=== PATIENT | female | born 1950 | race Caucasian/White ===

== ENCOUNTER → 2017-10-10 | Outpatient (CLI) | payer MEDICARE ==
[2017-03-07 12:36] VITALS: BMI 29.6
[~2017-10-10] MED LIST: APRE30TA2 PO; ASCO-183 PO; ASCO-191 PO; ASCO-599 PO; ASPI-757 PO; BIOT10006 PO; BIOT1TAB12 PO; BIS10S PR; BUP75 PO; CALC600T72 PO; CEPH-13 PO; CHOL100059 PO; CHOL100094 PO; CHOL500025 PO; CITA-139 PO; CLI150 PO; CYA1000 PO; DAP500I IV; DIAZ-308 PO; DOC100 PO; DULO60CA56 PO; ESTR0.4513 PO; FER325 PO; FLU20 PO; FOLI-68 PO; HYD200 PO; HYDR200T38 PO; KRIL500C2 PO; LEVO50TA80 PO; LOR10/325 PO; LOR5/325 PO; LOR7.5/325 PO; MAGN250T25 PO; MAGN250T34 PO; MOM PO; MULT1CAP59 PO; MYLL PO; OMEP-125 PO; OMEP-218 PO; TRAM-420 PO; WAR2 PO; WAR5 PO; ZINC50TA58 PO; [UNRECOGNIZED DRUG - CODE] PO; anti-depressant PO
== END ==
LOC: LAB 09:22
PROVIDERS: ATTEND Emergency Medicine
DX: E78.5 Hyperlipidemia, unspecified (principal)
CPT/HCPCS: 36415; 82465; 83718; 84478

== ENCOUNTER → 2017-10-17 | Outpatient (CLI) | payer MEDICARE ==
[2017-03-07 12:36] VITALS: BMI 29.6
--- NOTE | 2017-10-17 10:35 | RADIOLOGY IMAGING REPORT ---
FACILITY: [facility] PATIENT NAME: Zaynab Harper : 1950 MR: [id number] V: [id number] EXAM DATE: ORDERING PHYSICIAN: MARLENE LUNA TECHNOLOGIST: [place] [facility] [place] Zaynab Harper : 1950 Visit/Account:[id number] Date of Sevice: 10/17/2017 DEXA Scan Clinical history: Asymptomatic postmenopausal estrogen deficiency. Comparison: DEXA scan from 02/07/2000. LUMBAR SPINE: The bone mineral density (BMD) measured from L1-L4 correlates with a Z-score of -0.1 and a T-score of -1.8 which is osteopenia as defined by the World Health Organization. The corresponding risk of fra cture in the lumbar spine is 3-4 times increased compared with a young adult reference population. T his value has decreased by 13.1 % since the prior study. More than 5% change is considered significa nt. HIP: Bone mineral density (BMD) measured in the LEFT total hip region correlates with a Z-score -0.2 and a T-score of -1.7 which is osteopenia as defined by the World Health Organization. The corresponding risk of fracture in the hip is 3-4 times increased compared to a young adult reference population. Th is value has decrease by 25.6 % since the prior study. More than 5% change is considered significant . T score left femoral neck -1.8 Bone mineral density (BMD) measured in the Femoral Neck region measures 0.793 g/cm?. IMPRESSION: 1. Lumbar spine: Osteopenia. There has been 13.1% decrease in the bone mineral density since the pr evious exam. 2. Left Total Hip: Osteopenia. There has been 25.6% decrease in the bone mineral density since the previous exam. 3. Femoral Neck: Bone Mineral Density is 0.793 g/cm? The next DEXA scan of this patient should include the following sites: L1-L4 and the left hip. FRAX? WHO Fracture Risk Assessment Tool link: <http://www.shef.ac.uk/FRAX/tool.jsp?locationValue=9> PLEASE NOTE: 1) The World Health Organization defines low BMD as follows: T-score Normal > -1 Osteopenia < -1 and > -2.5 Osteoporosis < -2.5 without fractures Established osteoporosis < -2.5 with fractures 2) In general, you may wish to consider: Diagnosis Treatment Follow-up DEXA Normal BMD Prevention 2-3 years Osteopenia Prevention/therapy 1-2 years Osteoporosis Therapy Yearly 3) Fracture risk estimated from the T-score is more accurate for vertebral fractures (often spontane ous) than for hip fractures. Report Dictated By: Eden Hernandez MD at 10/17/2017 10:28 AM Report E-Signed By: Eden Hernandez MD at 10/17/2017 10:31 AM WSN:[email or web address]
--- NOTE | 2017-10-17 10:49 | RADIOLOGY IMAGING REPORT ---
FACILITY: [facility] - [place] PATIENT NAME: Zaynab Harper : 1950 MR: [id number] V: [id number] EXAM DATE: ORDERING PHYSICIAN: MARLENE LUNA TECHNOLOGIST: Location: [facility] - [place] Patient: Zaynab Harper : 1950 Visit/Account:[id number] Date of Sevice: 10/17/2017 CHEST W/O CONTRAST History: Lung nodule follow up. TECHNIQUE: Contiguous axial images were performed through the chest to the level of the adrenal gla nds. No IV contrast was administered. Coronal and sagittal reformatting was also performed. Dose Lowe ring Technique One of the following dose optimization techniques was utilized in the performance of this exam: Autom ated exposure control; adjustment of the mA and/or kV according to the patient's size; or use of an i terative reconstruction technique. Specific details can be referenced in the facility's radiology C T exam operational policy. COMPARISON STUDIES: CTA chest March 06, 2017. Lungs / Pleura: The previously noted 10 mm area of nodular consolidation the right lung base is no longer seen. There is no evidence of pulmonary nodules pulmonary infiltrates or pleural effusions. Mediastinum/nodes: There are several calcified pretracheal subcarinal and left hilar lymph nodes Heart and vessels: negative. Musculoskeletal / Body wall: There Is a gentle S-shaped scoliosis of the thoracic spine and mild to moderate degenerative changes of the shoulder joints Upper abdomen: Calcified granulomas in the liver and spleen IMPRESSION: Previously noted 10 mm area of nodular consolidation right lower lobe is no longer seen. There is no evidence of pulmonary nodules, infiltrates or pleural effusions at this time Evidence of a prior granulomatous process Report Dictated By: Eden Hernandez MD at 10/17/2017 10:37 AM Report E-Signed By: Eden Hernandez MD at 10/17/2017 10:45 AM WSN:[email or web address]
== END ==
LOC: CT 10-13 04:26
PROVIDERS: ATTEND Emergency Medicine
DX: R91.1 Solitary pulmonary nodule (principal); M85.89 Other specified disorders of bone density and structure, multiple sites; Z78.0 Asymptomatic menopausal state
CPT/HCPCS: 71250; 77080

== ENCOUNTER → 2017-11-16 | Outpatient (CLI) | payer MEDICARE ==
[2017-03-07 12:36] VITALS: BMI 29.6
[~2017-11-16] MED LIST changes: +ASPI-1471 PO; +ATOR40TA24 PO; -HYDR200T38 PO; +HYDR200T77 PO
== END ==
LOC: LAB 08:40
PROVIDERS: ATTEND Emergency Medicine
DX: E78.5 Hyperlipidemia, unspecified (principal)
CPT/HCPCS: 36415; 82465; 83718; 84478

== ENCOUNTER 2017-11-29 10:30 | Outpatient (RCR) | payer MEDICARE ==
[2017-03-07 12:36] VITALS: BMI 29.6
--- NOTE | 2017-10-11 17:16 | PT INITIAL EVALUATION ---
MEDICAL DIAGNOSIS: neck pain TREATMENT DIAGNOSIS: same and headaches DATE OF ONSET: 10/11/15 SUBJECTIVE: Lee Ann Sofia presents to physical therapy with complaints of neck pain associated with headaches approximately 2 years ago from no apparent reason. 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 She rates her constant neck pain to be 3/10. She reports that he has intermittent pain that goes from her neck to her B shoulders and also states that she has headaches that stay near the base of her skull. She reports that she is having difficulty driving and reading due to the neck pain. She reports that she feels like the neck pain is worsening. She reports that the pain is worse with bending, turning, staying still, in the am, and lying. She reports that the pain is better with sitting and on the move. She reports that she continues to has laser treatment and massage X 1 month with minimal results. She reports that she is going to try acupuncture her in the little while. She denies the following symptoms: dizziness, nausea, unexplained weight loss, no recent accidents or surgeries. She does report that she has tinnitus, difficulty swallowing, and night pain. Pain location is C2-C7 spinous and facets. REHAB PROBLEM LIST: Increased Pain Decreased ROM Decreased Strength Decreased Endurance Decreased Function Decreased ADL's Decreased Mobility PREVIOUS MEDICAL HISTORY: See EMR OCCUPATION: Retired OBJECTIVE: Posture: She demonstrated minimal forward head, B rounded shoulder, increased thoracic kyphosis, and decreased lumbar lordosis ROM: Cervical AROM: extension: major restriction end range pain, flexion full with painful end feel, R and L sidebending: moderate restriction with empty end feel, R rotation:moderate restriction with empty end feel. L rotation: minimal restriction with painful end feel. Palpation: TTP: C2-C7 spinous process and facet joints, which radiated to upper trap Special Tests: Repeated cervical retraction: pain during the motion and better following the test with cervical AROM. Mobility: Independent Gait: Normal gait mechanics ASSESSMENT: Pat will benefit from skilled physical therapy to address the listed impairments to improve function and QOL. Based on the examination, she demonstrated directional preference with cervical pain along with centralized pain. Based on the directional preference and centralized pain, her prognosis is excellent. Short Term Goals 2 weeks: Pt will demonstrate centralized cervical pain to improve function and QOL. 4 weeks: Pt will demonstrate abolished cervical pain and return to prior level of function. 6 weeks: Pt will demonstrate full cervical AROM along with improved work conditioning and improved body mechanics to reduce possibility of reoccurrences. Patient's Goals reduce pain, improve function, and learn better body mechanics PLAN: Patient to be seen for Manual Therapy/STM/MET Strengthening/condition Range of Motion Spinal Stabilization Work Hardening/Cond Stretching Neuromuscular Re-ed Closed Chain Program Posture/Body mechanics Home Exercise Program Therapeutic Activities 2x/week for 6 Weeks If you have any questions, comments, or concerns about this report or plan, please contact me at . Thank you, Cortez Arzola, PT, DPT MTDD
--- NOTE | 2017-11-10 14:18 | PT PLAN OF CARE ---
Physician: Lizabeth Buckley MD Patient is being seen: 2x/week Therapist: Cortez Arzola, PT, DPT Medical Diagnosis: neck pain Treatment Diagnosis: same and headaches Date of Onset: 10/11/15 Date of Initial Evaluation: 10/11/17 Date patient was last seen: 11/10/17 Number of treatments: 10 Number of cancellations/No shows: 0 INTERVENTIONS: PLAN: Patient to be seen for Manual Therapy/STM/MET Strengthening/condition Range of Motion Spinal Stabilization Work Hardening/Cond Stretching Neuromuscular Re-ed Closed Chain Program Posture/Body mechanics Home Exercise Program Therapeutic Activities Short Term Goals 2 weeks: Pt will demonstrate centralized cervical pain to improve function and QOL. MET 4 weeks: Pt will demonstrate abolished cervical pain and return to prior level of function. Progressing 6 weeks: Pt will demonstrate full cervical AROM along with improved work conditioning and improved body mechanics to reduce possibility of reoccurrences. Progressing Patient's Goals reduce pain, improve function, and learn better body mechanics: progressing Status of Patient's Goals: Progressing Patient Compliance: Good Prognosis: Good Reasons for continuing therapy: This is a progress note for Lee Ann Sofia. She reports that she is doing well. She reports that she feels like her motion has significantly improved along with her neck pain. She rates her current neck pain to be 2/10. Furthermore, she reports that her neck pain is more centralized near the occiput.She continues to demonstrated centralized neck pain , a directional preference in flexion, and a reduction of intensity. Furthermore , she demonstrates significant improvements in cervical AROM in all directions and all movements appear equal from side to side. We will continue to improve until goals have been met and has returned to prior level of function. OBJECTIVE: Posture: She demonstrated minimal forward head, B rounded shoulder, increased thoracic kyphosis, and decreased lumbar lordosis ROM: Cervical AROM: extension: minimal restriction end range pain, flexion full with painful end feel, R and L sidebending: minimal restriction with empty end feel, R rotation: minimal restriction with empty end feel. L rotation: minimal restriction with painful end feel. Palpation: TTP: C0 Mobility: Independent Gait: Normal gait mechanics If you have any questions, comments, or concerns about this report or plan, please contact me at . Thank you, Cortez Arzola, PT, DPT [facility]
--- NOTE | 2017-11-29 11:11 | PT PLAN OF CARE ---
Physician: Lizabeth Buckley MD Patient is being seen: 2x/week Therapist: Cortez Arzola, PT, DPT Medical Diagnosis: neck pain Treatment Diagnosis: same and headaches Date of Onset: 10/11/15 Date of Initial Evaluation: 10/11/17 Date patient was last seen: 11/29/17 Number of treatments: 14 Number of cancellations/No shows: 0 INTERVENTIONS: PLAN: Patient to be seen for Manual Therapy/STM/MET Strengthening/condition Range of Motion Spinal Stabilization Work Hardening/Cond Stretching Neuromuscular Re-ed Closed Chain Program Posture/Body mechanics Home Exercise Program Therapeutic Activities Short Term Goals 2 weeks: Pt will demonstrate centralized cervical pain to improve function and QOL. MET 4 weeks: Pt will demonstrate abolished cervical pain and return to prior level of function. Progressing will meet in the future 6 weeks: Pt will demonstrate full cervical AROM along with improved work conditioning and improved body mechanics to reduce possibility of reoccurrences. MET Patient's Goals reduce pain, improve function, and learn better body mechanics: MET Status of Patient's Goals: Progressing Patient Compliance: Good Prognosis: Good Reasons for continuing therapy: This is a discharge note for Lee Ann Sofia. She reports that she is doing well. She reports that she can move her neck better with no pain. She states that some motions feel like a muscle stretch but no pain. She reports her neck pain to be 1/10. She reports that she feels like it is slowly improving. She has progressed well within PT with the following improvements: increased cervical AROM in all directions with normalized end feels and independent on specific exercise that will assist her to continue to improve and eventually her neck pain with be abolished. She received education on how to progress and how to prevent further occurrences once it has completely abolished. As a result, she will be discharged from PT. OBJECTIVE: Posture: She demonstrated minimal forward head, B rounded shoulder, increased thoracic kyphosis, and decreased lumbar lordosis ROM: Cervical AROM: extension: NIL empty range pain, flexion full with normal end feel, R and L sidebending: NIL with muscular end feel, R rotation: NIL with muscular end feel. L rotation: NIL with muscular end feel. Palpation: TTP: C0 Mobility: Independent Gait: Normal gait mechanics If you have any questions, comments, or concerns about this report or plan, please contact me at . Thank you, Cortez Arzola, PT, DPT MTDD
== END 2017-11-29 18:00 | disposition home or self-care (01) ==
LOC: PT 10:30
PROVIDERS: ATTEND Emergency Medicine
DX: M54.2 Cervicalgia (principal); R51 Headache; H93.19 Tinnitus, unspecified ear; R13.10 Dysphagia, unspecified
CPT/HCPCS: 97162

== ENCOUNTER 2018-01-12 03:56 | Day surgery (SDC) | payer MEDICARE ==
[2017-03-07 12:36] VITALS: Ht 165.1 cm; Wt 58.1 kg
[~2018-01-12] VITALS: Ht 165.1 cm; Wt 58.1 kg
[2018-01-12] VITALS (8 sets, daily range): BP systolic 81–128; BP diastolic 51–84
[2018-01-12] MEDS ORDERED: PROPOFOL EMUL(*) 10MG/ML 20 ML 40 ML ONE (07:00)
[2018-01-12] MEDS ORDERED: NORMOSOL R SOLN(*) 1000 ML BAG 1,000 ML IV PRN (07:15)
[2018-01-12] MEDS ORDERED: LIDOCAINE/SOD BICARB 8.4% SYR ID ONE (07:15)
== END 2018-01-12 09:35 | disposition home or self-care (01) ==
LOC: OR 03:56
PROVIDERS: ATTEND Internal Medicine
DX: Z12.11 Encounter for screening for malignant neoplasm of colon (principal); K57.30 Diverticulosis of large intestine without perforation or abscess without bleeding
CPT/HCPCS: 00812; 45378; J2704

== ENCOUNTER → 2018-05-22 | Outpatient (CLI) | payer MEDICARE ==
[2017-03-07 12:36] VITALS: BMI 29.6
[~2018-05-22] MED LIST changes: -CITA-139 PO; +CITA-145 PO
== END ==
LOC: LAB 11:26
PROVIDERS: ATTEND Emergency Medicine
DX: R10.13 Epigastric pain (principal)
CPT/HCPCS: 87338

== ENCOUNTER → 2018-06-15 | Outpatient (CLI) | payer MEDICARE ==
[2017-03-07 12:36] VITALS: BMI 29.6
[~2018-06-15] MED LIST changes: +BARIUM SULFATE 176 GM BTL PO ONE; +BARIUM SULFATE 340 GM POWD ONE; +RANI-318 PO
--- NOTE | 2018-06-15 13:40 | RADIOLOGY IMAGING REPORT ---
FACILITY: [facility] PATIENT NAME: Zaynab Harper : 1950 MR: [id number] V: [id number] EXAM DATE: ORDERING PHYSICIAN: MARLENE LUNA TECHNOLOGIST: Location: [facility] - [place] Patient: Zaynab Harper : 1950 Visit/Account:[id number] Date of Sevice: 06/15/2018 Exam type: ESOPHAGRAM History: Dysphagia. The patient also gives a history of previous esophageal dilatation Comparison: None. Findings: Double contrast esophagram was performed with thick and thin barium and air contrast.. There is a sm all hiatal hernia with a large amount of gastroesophageal reflux observed. No significant narrowing identified within the esophagus. No mucosal erosion identified. The fluoroscopy dose area product w as 94.67 micro-Fontenot per meter squared IMPRESSION: 1. Small hiatal hernia with a large amount of gastroesophageal reflux although no significant esopha geal narrowing or mucosal erosion identified Report Dictated By: Eden Hernandez MD at 06/15/2018 1:25 PM Report E-Signed By: Eden Hernandez MD at 06/15/2018 1:36 PM WSN:[email or web address]
== END ==
LOC: RAD 04:28
PROVIDERS: ATTEND Emergency Medicine
DX: K44.9 Diaphragmatic hernia without obstruction or gangrene (principal); K21.9 Gastro-esophageal reflux disease without esophagitis; R13.10 Dysphagia, unspecified
CPT/HCPCS: 74220

== ENCOUNTER → 2018-06-18 | Outpatient (CLI) | payer MEDICARE ==
[2017-03-07 12:36] VITALS: BMI 29.6
[~2018-06-18] MED LIST changes: -BARIUM SULFATE 176 GM BTL PO ONE; -BARIUM SULFATE 340 GM POWD ONE
[2018-06-18 16:23] LABS: PLATELET COUNT, AUTOMATED 235 K/uL (150-450)
== END ==
LOC: LAB 15:52
PROVIDERS: ATTEND Emergency Medicine
DX: D75.89 Other specified diseases of blood and blood-forming organs (principal); Z90.5 Acquired absence of kidney
CPT/HCPCS: 36415; 82040; 82247; 82310; 82374; 82435; 82565; 82607; 82947; 84075; 84132; 84155; 84295; 84450; 84460; 84520; 85025

== ENCOUNTER → 2018-09-26 | Outpatient (CLI) | payer MEDICARE ==
[2017-03-07 12:36] VITALS: BMI 29.6
[~2018-09-26] MED LIST changes: +BUPR-126 PO; +CITA-141 PO
--- NOTE | 2018-09-26 16:27 | RADIOLOGY IMAGING REPORT ---
FACILITY: [facility] - [place] PATIENT NAME: PHILLIP WARREN : [id number] MR: [id number] V: [id number] EXAM DATE: [id number] ORDERING PHYSICIAN: MARLENE LUNA TECHNOLOGIST: Twan Dill RDMS, JUAN JOSE PROCEDURE:US LEFT BREAST COMPLETE COMPARISON:None. INDICATIONS:BREAST LUMP 12 O'CLOCK POSITION OF THE LEFT BREAST AND ABNORMAL MAMMOGRAM. FINDINGS: There is a solid hypoechoic irregular micro lobulated mass with acoustic enhancement in the upper portion of the Left breast that extends from 11 o'clock to 2 o'clock measuring 4.5 x 3.7 x 2cm and is indenting the anterior border of the patients breast implant. The mass is extremely concerning for malignancy an Ultrasound guided core biopsy is recommended. This corresponds to the mammographic abnormality seen today. DIAGNOSTIC CATEGORY 5--HIGHLY SUGGESTIVE OF MALIGNANCY. RECOMMENDATIONS: ULTRASOUND-GUIDED CORE BIOPSY: LEFT BREAST. IMPRESSION: BIRADS 5: Highly suggestive of malignancy. Ultrasound guided core biopsy of the solid heterogeneous shadowing mass in the upper portion of the Left breast extending from the 11-2 o'clock position as detailed above. These findings were discussed with the patient at the time of the examination. Dictated by: Eden Hernandez M.D. on 09/26/2018 at 14:48 Transcribed by: MELISSA on 09/26/2018 at 15:04 Approved by: Eden Hernandez M.D. on 09/26/2018 at 16:26 [facility]
--- NOTE | 2018-09-26 16:27 | RADIOLOGY IMAGING REPORT ---
FACILITY: [facility] PATIENT NAME: PHILLIP WARREN : [id number] MR: [id number] V: [id number] EXAM DATE: ORDERING PHYSICIAN: MARLENE LUNA TECHNOLOGIST: Jolanta Cooper PROCEDURE:BILATERAL DIAGNOSTIC DIGITAL MAMMOGRAM WITH CAD ASSISTED INTERPRETATION & 3D TOMOSYNTHESIS COMPARISON:Prior mammograms 08/30/17, 08/03/17, 03/01/16, 02/24/15, 12/30/13, 12/28/12. INDICATIONS:SCREENING FINDINGS: Again noted are bilateral subpectoral breast implants which appear intact. The breasts are heterogeneously dense which can obscure small masses. In the upper outer portion of the Left breast in the anterior 1/3 there is a large irregular spiculated mass with slight Left nipple retraction and adjacent skin thickening. Today's Left breast Ultrasound demonstrated a large heterogeneous solid shadowing mass that extends from the 11-2 o'clock position which would account for this finding. The finding is extremely concerning for malignancy an Ultrasound guided core biopsy is recommended. DIAGNOSTIC CATEGORY 5--HIGHLY SUGGESTIVE OF MALIGNANCY. RECOMMENDATIONS: ULTRASOUND-GUIDED CORE BIOPSY: LEFT BREAST. IMPRESSION: BIRADS 5: Highly suggestive of malignancy. Ultrasound guided core biopsy of the large heterogeneous shadowing mass in the upper portion of the Left breast that extends from the 11-2 o'clock. These findings were discussed with the patient at the time of examination. Dictated by: Eden Hernandez M.D. on 09/26/2018 at 14:58 Transcribed by: MELISSA on 09/26/2018 at 15:13 Approved by: Eden Hernandez M.D. on 09/26/2018 at 16:26 [facility]
== END ==
LOC: MAMO 02:45
PROVIDERS: ATTEND Emergency Medicine
DX: R92.2 Inconclusive mammogram (principal); G62.9 Polyneuropathy, unspecified; E05.90 Thyrotoxicosis, unspecified without thyrotoxic crisis or storm
CPT/HCPCS: 36415; 77062; 77066; 82607; 84443

== ENCOUNTER → 2018-10-03 | Outpatient (CLI) | payer MEDICARE ==
[2017-03-07 12:36] VITALS: BMI 29.6
== END ==
LOC: LAB 13:54
PROVIDERS: ATTEND Surgery
DX: C50.412 Malignant neoplasm of upper-outer quadrant of left female breast (principal)
CPT/HCPCS: 88305; 88344

== ENCOUNTER 2018-10-18 01:06 | Day surgery (SDC) | payer MEDICARE ==
[2017-03-07 12:36] VITALS: Ht 165.1 cm; Wt 63.5 kg
[2018-10-15 17:01] LABS: PLATELET COUNT, AUTOMATED 202 K/uL (150-450)
--- NOTE | 2018-10-15 17:07 | RADIOLOGY IMAGING REPORT ---
FACILITY: [facility] - [place] PATIENT NAME: Zaynab Harper : 1950 MR: [id number] V: [id number] EXAM DATE: ORDERING PHYSICIAN: LAZARO GARCIA TECHNOLOGIST: Location: [facility] Patient: Zaynab Harper : 1950 Visit/Account:[id number] Date of Sevice: 10/15/2018 CERVICAL SPINE 2 OR 3 VIEW History: Neck pain. History of rheumatoid arthritis. Comparison study: None. Findings: In the neutral position there is subtle anterior spinal listhesis at C4-5 of 1 mm. This do es not change during flexion. During flexion there is, however, subtle new anterior at C5-6 of 1 mm where there are discogenic dege nerative changes. There are discogenic generative changes at C6-7 as well. The anterior atlantoaxial distance is normal during the neutral position and in flexion. IMPRESSION: 1. There are discogenic degenerative changes in the mid cervical spine. 2. In the neutral position there is subtle anterior spondylolisthesis at C4-5 of less than 1 mm that reduces during extension. 3. During flexion there is subtle anterior spondylolisthesis at C5-6 of 1 mm that was not seen in the neutral position and reduces during extension. Report Dictated By: Antonio Guerrero MD at 10/15/2018 4:59 PM Report E-Signed By: Antonio Guerrero MD at 10/15/2018 5:02 PM WSN:[id number]
[~2018-10-18] VITALS: Ht 165.1 cm; Wt 63.5 kg
[~2018-10-18 01:06] MED LIST changes: +KRIL1CAP19 PO
[2018-10-18] MEDS ORDERED: LIDOCAINE/PRILOCAINE 5 GM TUBE TP ONE (08:00)
[2018-10-18 08:14] VITALS: BP 119/78
[2018-10-18] MEDS ORDERED: APREPITANT 40 MG CAP PO ONE (08:50)
[2018-10-18] MEDS ORDERED: MIDAZOLAM 2 MG/2 ML VIAL IVP PRN (09:15)
[2018-10-18] MEDS ORDERED: NORMOSOL R SOLN(*) 1000 ML BAG 1,000 ML IV PRN (09:15)
[2018-10-18] MEDS ORDERED: LIDOCAINE/SOD BICARB 8.4% SYR ID ONE (09:15)
[2018-10-18] MEDS ORDERED: fentaNYL CITR 100 MCG/2 ML AMP ONE ×2 (09:43→14:21)
[2018-10-18] MEDS ORDERED: KETAMINE HCL-NS 50 MG/5 ML SYR ONE (09:44)
[2018-10-18] MEDS ORDERED: DEXAMETHASONE SOD PHOS 10MG/ML ONE (09:45)
[2018-10-18] MEDS ORDERED: LIDOCAINE MPF 1% 5 ML VIAL ONE (09:45)
[2018-10-18] MEDS ORDERED: PROPOFOL EMUL(*) 10MG/ML 20 ML 20 ML ONE (09:45)
[2018-10-18] MEDS ORDERED: ONDANSETRON 4 MG/2 ML VIAL ONE (09:45)
[2018-10-18] MEDS ORDERED: ceFAZolin(*) 2GM/D5W 50ML 50 ML IVPB ONE (10:15)
[2018-10-18] MEDS ORDERED: ISOSULFAN BLUE 1% SLN 50MG/5ML ONE (11:00)
[2018-10-18] MEDS ORDERED: ROPIVACAINE 0.5% 20 ML VIAL ONE (11:00)
--- NOTE | 2018-10-18 11:34 | RADIOLOGY IMAGING REPORT ---
FACILITY: [facility] - [place] PATIENT NAME: Zaynab Harper : 1950 MR: [id number] V: [id number] EXAM DATE: ORDERING PHYSICIAN: LAZARO LARA TECHNOLOGIST: Location: [facility] Patient: Zaynab Harper : 1950 Visit/Account:[id number] Date of Sevice: 10/18/2018 Exam type: NM SENTINEL NODE INJECTION ONLY History: Left breast cancer Comparison: None. Findings: The patient received 534 uCi of technetium 99m lymphoseek and 4 subcutaneous left periareolar injecti ons. Multiple gamma camera images were obtained over the chest demonstrating at least four left axil joe sentinel lymph nodes. IMPRESSION: 1. At least four left axillary sentinel lymph nodes are imaged Report Dictated By: Eden Hernandez MD at 10/18/2018 11:29 AM Report E-Signed By: Eden Hernandez MD at 10/18/2018 11:30 AM WSN:[email or web address]
[2018-10-18] MEDS ORDERED: ACETAMINOPHEN(*)1000 MG/100 ML 100 ML IVPB ONE (14:22)
[2018-10-18] MEDS ORDERED: OXYC-854 PO (14:29)
[2018-10-18] MEDS ORDERED: DOCU100C56 PO (14:29)
--- NOTE | 2018-10-18 14:33 | Short(Outpt) Discharge Summary ---
Discharge Summary Reason for Hosp/Final Diag: (1) Breast cancer of upper-outer quadrant of left female breast Status: Chronic Hospital Course & Plan: Left breast cancer wide excision and left axillary SLN excision completed without problems. (2) Hx of breast implants, bilateral Status: Chronic Departure Discharge to: Home, Self Care Discharge Instructions Home Meds Active Scripts Docusate Sodium (DOC-Q-LACE) 100 Mg Capsule, 1 CAP PO BID, #30 CAPSULE 0 Refills Prov:LAZARO LARA MD 10/18/18 Oxycodone Hcl/Acet 5/325 Mg (ENDOCET 5-325 TABLET) 1 Each Tablet, 1 TAB PO Q4H PRN for PAIN, #20 TAB 0 Refills Prov:LAZARO LARA MD 10/18/18 Bupropion Hcl (WELLBUTRIN SR) 150 Mg Tablet.er, 150 MG PO BID, #180 TAB 3 Refills Take 1 tab po daily for a week , then 1 tab twice daily Prov:MARLENE LUNA MD 10/01/18 Citalopram Hydrobromide (CITALOPRAM HBR) 40 Mg Tablet, 40 MG PO QDAY, #90 TAB 3 Refills Prov:MARLENE LUNA MD 10/01/18 Atorvastatin Calcium (LIPITOR) 40 Mg Tablet, 1 TAB PO QDAY, #90 TAB 3 Refills Prov:MARLENE LUNA MD 10/01/18 Ranitidine Hcl (RANITIDINE HCL) 150 Mg Tablet, 150 MG PO BID, #180 TAB 3 Refills Prov:MARLENE LUNA MD 07/24/18 Reported Medications Krill/Om-3/Dha/Epa/Phospho/Ast (Krill Oil 500 mg Softgel) 1 Each Capsule, 1 CAP PO DAILY 10/15/18 Cyanocobalamin (Vitamin B-12) (VITAMIN B-12) 1,000 Mcg Tablet, 1000 MCG PO DAILY 10/15/18 Aspirin (ASPIR 81) 81 Mg Tablet.dr, 81 MG PO QDAY, TAB 10/20/17 Magnesium Oxide (MAGNESIUM) 250 Mg Tablet, 1 TAB PO DAILY 10/09/17 Cholecalciferol (Vitamin D3) (VITAMIN D3) 5,000 Unit Tablet, 1 TAB PO DAILY 10/09/17 Biotin (Biotin) 10,000 Mcg Tab.rapdis, 1 TAB PO DAILY 10/09/17 Apremilast (Otezla) 30 Mg Tablet, 1 TAB PO BID 03/06/17 Discontinued Reported Medications Ascorbic Acid (ASCORBIC ACID) 500 Mg Tablet, 1 TAB PO 10/09/17 Follow up Referrals: General Surgery - 11/02/18 @ Surgery, General with LAZARO LARA MD You have a follow up appointment scheduled with Dr. Lara on 11/02/18, at 3:15pm. Diet: Regular Activity: As Tolerated Special Instructions: You may remove the white surgical dressings on 10/20/18, then you may shower. After showering, leave the incisions open to air but leave the steristrips in place until they fall off on their own. Do not immerse the incisions for 2 weeks. Problem Qualifiers (1) Breast cancer of upper-outer quadrant of left female breast: Estrogen receptor status: positive Qualified Codes: C50.412 - Malignant neoplasm of upper-outer quadrant of left female breast; Z17.0 - Estrogen receptor positive status [ER+] LAZARO LARA MD Oct 18, 2018 14:33
--- NOTE | 2018-10-18 14:45 | Post Operative Progress Note ---
Post Operative Progress Note Date: Oct 18, 2018 Time: 14:34 Surgeon: Sylvia Dictation number: [id number] Anesthesia: LMA by Dr. Mauro Pre-Op Diagnosis: Left breast cancer, UOQ, female Post-Op Diagnosis: RIP Findings: 4 SLN removed, no cancer in LN on frozen section Tumor in middle of specimen on mammography of specimen but close to medial margin Medial margin reexcision positive on frozen section Medial margin re-reexcision negative on frozen section Procedure(s): Left breast cancer wide excision Left axillary SLN excision Specimen Removed:(May be N/A): 1) SLN #1 2) SLN #2 3) SLN #3 4) SLN #4 5) left breast cancer 6) left breast medial margin reexcision 7) left breast medial margin re-reexcision Complications: None Fluids: See anesthesia record Estimated Blood Loss: Minimal Date OP Note Dictated: Oct 18, 2018 Time OP Note Dictated: 14:37 LAZARO LARA MD Oct 18, 2018 14:45
[2018-10-18 15:40] VITALS: BP 118/66
--- NOTE | 2018-10-18 15:40 | NUR ---
1540- PT BROUGHT TO STEP DOWN BAY 3, PT IN SF POSITION, PT ON 2LPM VIA NC, MAINTAINING SATS, RESPIRATIONS AND AIRWAY, VSS, PT IS POLITE AND COOPERATIVE WITH CARES AND STAFF, PT TOLERATING SIPS OF WATER, SBAR REPORT FROM Iliana KO RN 1543- DECREASED O2 TO 1LPM VIA NC, PT RATED PAIN 3/10 TO LEFT BREAST 1544- FAMILY AT BEDSIDE
[2018-10-18 15:45] VITALS: BP 127/72
--- NOTE | 2018-10-18 15:51 | NUR ---
1551- PT TOLERATING ANDRES CRACKERS AND ICE TEA, VISITING WITH FAMILY
--- NOTE | 2018-10-18 15:54 | NUR ---
1554- DECREASED O2 TO 0.5LPM VIA NC, PT MAINTAINING SATS, RESPIRATIONS AND AIRWAY WILL CONTINUE TO MONITOR
[2018-10-18 16:00] VITALS: BP 128/71
--- NOTE | 2018-10-18 16:04 | NUR ---
9804- PRESCRIPTIONS GIVEN TO TO GO FILL, PT PLACED HEARING AIDS IN, VISITING WITH FRIEND AND TOLERATING ANDRES CRACKERS
--- NOTE | 2018-10-18 16:11 | OPERATIVE REPORT 1 ---
EVENT DATE: October 18, 2018 SURGEON: José Manuel Ward MD ANESTHESIOLOGIST: Mario Mauro MD ANESTHESIA: LMA. PREOPERATIVE DIAGNOSIS Left breast cancer. POSTOPERATIVE DIAGNOSIS Left breast cancer. PROCEDURES PERFORMED 1. Left breast wide local excision of breast cancer. 2. Left axillary sentinel lymph node excision. COMPLICATIONS None. CONDITION Stable. BLOOD LOSS Minimal. SPECIMENS 1. [place] lymph node #1. 2. [place] lymph node #2. 3. [place] lymph node #3. 4. [place] lymph node #4. 5. Left breast cancer. 6. Left breast medial margin reexcision. 7. Left breast medial margin re-reexcision. FINDINGS Patient had four sentinel lymph nodes removed, all with gamma output, but radiologist reported he saw three sentinel lymph nodes, and the fourth contained mostly just fat, but none of them contained any evidence of metastatic cancer. Initially, the medial margin that I reexcised had cancer in it, and so I reexcised more, and the reexcision did not have any evidence of cancer on frozen section. INDICATIONS This is a 68-year-old female who presented to my office with a lump in her upper-outer quadrant of her left breast. She had implants, and our radiologist did not feel comfortable performing a biopsy, and so I performed a core needle biopsy in my office. This revealed a poorly differentiated breast cancer. After this diagnosis was made, I discussed our options with the patient, mastectomy versus breast conservation therapy. The palpable mass was quite big; however, with the implant, I discussed performing breast conservation therapy, and if I could not get the margins negative, then we would have to go back and perform a mastectomy. She elected to try the breast conservation therapy with the idea that we would pursue mastectomy if margins were positive I also consented her for sentinel lymph node excision as well as completion axillary dissection if the sentinel lymph nodes were positive. DESCRIPTION OF PROCEDURE Patient was brought to the operating room and placed supine on the operating table. LMA anesthesia was administered, and her left breast and upper extremity were prepped and draped in a sterile fashion. Timeout was completed. I used a gamma probe, identifying most of the gamma output of the axilla and marked the skin at this site. I injected the skin with 0.5% ropivacaine plain. I made an incision in the left axilla. I dissected the dermis and subcutaneous fat into the axillary contents. I used a gamma probe to ultimately guide me to four sentinel lymph nodes, which I removed separately, and they were sent separately to Pathology fresh for frozen section analysis and labeled appropriately. I made sure the right axilla was hemostatic and then placed a moist Ray-Joseph inside the axilla. I then started with the breast procedure. I palpated the lesion which was in the upper-outer quadrant, but came up under the areola, and so I marked the skin in a circumareolar fashion and then widened the incision out toward the upper-outer quadrant of the breast to the edge of the palpable mass. I then anesthetized the skin where I marked it and then made incision where I marked it. I then raised flaps superiorly and inferiorly and then medially raising the areola up off the underlying breast tissue. I then dissected all the way around the palpable mass and then removed it from the wound and marked it with a long silk suture laterally and a short silk suture superiorly. I then placed it on a mammogram grid, and I walked it over to Radiology and took several mammographic images of the specimen. I could see the cancer right in the middle of the specimen, and the medial side looked like it was pretty close between the cancer and the medial margin. I went back to the operating room and removed more tissue from the medial margin and marked the tumor side of the tissue with silk suture and then sent it to Pathology for frozen section. He reported that the tumor site came back positive, and it looked close to the side opposite the tumor, and so I removed some more margin and sent it for frozen. This came back negative for cancer. I then irrigated and dried the wound and then closed the skin with interrupted 3-0 Vicryl deep derma sutures and 4-0 Monocryl running subcuticular sutures. In the axilla, I removed the Ray-Joseph from the wound, and by this time, we had heard that all of the lymph nodes were negative for metastatic cancer, and so I closed the dissection planes in the axilla with running 3-0 Vicryl sutures. The skin was closed with 3-0 Vicryl interrupted deep dermal sutures and 4-0 Monocryl running subcuticular sutures. Skin was cleaned and dried, and Steri-Strips were applied over both incisions, followed by sterile surgical dressings. The patient was awakened, and LMA removed. She was transferred to the recovery room in stable condition having tolerated the procedure without any apparent problems. OVIDIO
--- NOTE | 2018-10-18 16:15 | NUR ---
1615- SL IV, ORTHOSTATIC VSS, PT REPORTS MILD DIZZINESS 1620- PT UP TO RESTROOM SBA X 1 1625- PT BACK TO BED, SATS 85% ON RA, PT DEEP BREATHING SATS NICOLA TO 92% WITHIN 10 SECONDS 1627- OXYCODONE/ACETAMINOPHEN 5/325 GIVEN PO, SEE EMAR FOR DETAILS 1633- SATS DOWN TO 86% ON RA, DEEP BREATHING SATS UP TO 90% WITHIN 10 SECONDS 1637- PT TOLERATING ANDRES CRACKERS AND MILK
[2018-10-18 16:16] VITALS: BP 127/70
[2018-10-18 16:17] VITALS: BP 126/74
--- NOTE | 2018-10-18 16:50 | NUR ---
1650- INCENTIVE SPIROMETER EDUCATION
--- NOTE | 2018-10-18 16:51 | RADIOLOGY IMAGING REPORT ---
FACILITY: [facility] - [place] PATIENT NAME: PHILLIP WARREN : [id number] MR: [id number] V: [id number] EXAM DATE: ORDERING PHYSICIAN: LAZARO LARA TECHNOLOGIST: Sandhya Dean PROCEDURE: BREAST SPECIMEN COMPARISON: None. INDICATIONS: Left breast cancer FINDINGS: 3 radiographs of the surgical specimen from Left breast excision demonstrates a large dense spiculated mass within the surgical specimen. CONCLUSION: As above. Dictated by: Eden Hernandez M.D. on 10/18/2018 at 14:55 Transcribed by: MELISSA on 10/18/2018 at 14:59 Approved by: Eden Hernandez M.D. on 10/18/2018 at 16:50 [facility]
--- NOTE | 2018-10-18 16:58 | NUR ---
1658- REVIEWED D/C INSTRUCTIONS WITH PT AND
--- NOTE | 2018-10-18 17:05 | NUR ---
1705- D/C IV WITH CATH INTACT, PRESSURE DRESSING APPLIED WITH GAUZE AND COBAND 1720- PT DRESSED, WHEEL CHAIRED TO NUNU, ACCOMPANIED BY LUCILA AND JOANNA NAVARRO
== END 2018-10-18 15:40 | disposition home or self-care (01) ==
LOC: OR 01:06
PROVIDERS: ATTEND Surgery
DX: C50.412 Malignant neoplasm of upper-outer quadrant of left female breast (principal); C77.3 Secondary and unspecified malignant neoplasm of axilla and upper limb lymph nodes; Z98.82 Breast implant status
CPT/HCPCS: 19302; 36415; 72040; 78195; 85025; 88305; 88331; 88332; 88344; A9270; A9520; J0131; J1100; J2001; J2405; J2704; J2795; J3010; J3490; J8501; Q9968; J0690

== ENCOUNTER → 2018-11-13 | Outpatient (CLI) | payer MEDICARE ==
[2017-03-07 12:36] VITALS: BMI 29.6
[~2018-11-13] MED LIST changes: +DOCU100C56 PO; +OXYC-854 PO
--- NOTE | 2018-11-13 14:10 | RADIOLOGY IMAGING REPORT ---
[place] [facility] [place] Zaynab Harper : 1950 MR: [id number] V: [id number] EXAM DATE: ORDERING PHYSICIAN: TAMIKA GLASS TECHNOLOGIST: Location: [facility] Patient: Zaynab Harper : 1950 Visit/Account:[id number] Date of Sevice: 11/13/2018 PICC LINE PLACEMENT, PICC LINE INSERTION HISTORY: Long-term venous access. Breast cancer. COMPARISON: None FINDINGS: The patient was aware of the risks and benefits of the procedure with informed written consent obtain ed. A formal timeout was performed confirming the patient's name, date of and procedure to be performed. The patient was placed in the supine position with the left arm prepped and draped in a sterile fashi on. Limited ultrasound images show adequate size of the left basilic vein. A suitable entry site pr oximal to the antecubital fossa was anesthetized with 1% lidocaine. The left basilic vein accessed w ith a micropuncture set with guidewire advanced into the SVC. The needle was removed with a sheath a dvanced over the guidewire. A 5 [place] single lumen PICC was advanced into the cavoatrial junction w ith location confirmed on fluoroscopy and an image stored to PACS. The sheath was then removed with the catheter fixed to the skin surface. No immediate medications. IMPRESSION: 1. Successful placement of a left arm single lumen PICC through the left basilic vein Report Dictated By: Kwaku Hassan MD at 11/13/2018 1:36 PM Report E-Signed By: Kwaku Hassan MD at 11/13/2018 2:06 PM WSN:[email or web address]
--- NOTE | 2018-11-13 14:10 | RADIOLOGY IMAGING REPORT ---
FACILITY: [facility] - [place] PATIENT NAME: Zaynab Harper : 1950 MR: [id number] V: [id number] EXAM DATE: ORDERING PHYSICIAN: TAMIKA GLASS TECHNOLOGIST: Location: [facility] - [place] Patient: Zaynab Harper : 1950 Visit/Account:[id number] Date of Sevice: 11/13/2018 PICC LINE PLACEMENT, PICC LINE INSERTION HISTORY: Long-term venous access. Breast cancer. COMPARISON: None FINDINGS: The patient was aware of the risks and benefits of the procedure with informed written consent obtain ed. A formal timeout was performed confirming the patient's name, date of and procedure to be performed. The patient was placed in the supine position with the left arm prepped and draped in a sterile fashi on. Limited ultrasound images show adequate size of the left basilic vein. A suitable entry site pr oximal to the antecubital fossa was anesthetized with 1% lidocaine. The left basilic vein accessed w ith a micropuncture set with guidewire advanced into the SVC. The needle was removed with a sheath a dvanced over the guidewire. A 5 [place] single lumen PICC was advanced into the cavoatrial junction w ith location confirmed on fluoroscopy and an image stored to PACS. The sheath was then removed with the catheter fixed to the skin surface. No immediate medications. IMPRESSION: 1. Successful placement of a left arm single lumen PICC through the left basilic vein Report Dictated By: Kwaku Hassan MD at 11/13/2018 1:36 PM Report E-Signed By: Kwaku Hassan MD at 11/13/2018 2:06 PM WSN:[email or web address]
== END ==
LOC: US 12:31
PROVIDERS: ATTEND Internal Medicine Hematology
DX: C50.412 Malignant neoplasm of upper-outer quadrant of left female breast (principal)
CPT/HCPCS: 36573; C1751

== ENCOUNTER → 2018-11-15 | Outpatient (CLI) | payer MEDICARE ==
[2017-03-07 12:36] VITALS: BMI 29.6
[~2018-11-15] MED LIST changes: +PEGFILGRASTIM 6 MG/0.6 ML KIT SUBQ ONE
== END ==
LOC: SPU 15:16
PROVIDERS: ATTEND Internal Medicine Hematology
DX: C50.919 Malignant neoplasm of unspecified site of unspecified female breast (principal)
CPT/HCPCS: 96372; J2505

== ENCOUNTER 2019-01-09 08:15 | Outpatient (RCR) | payer MEDICARE ==
[2017-03-07 12:36] VITALS: BMI 29.6
--- NOTE | 2018-12-28 07:39 | PT INITIAL EVALUATION ---
MEDICAL DIAGNOSIS: Breast Surgery, Lymph Node Excision TREATMENT DIAGNOSIS: Breast Surgery, Lymph Node Excision, Shoulder Dysfunction, Neuropathy DATE OF ONSET: 12/27/18 SUBJECTIVE: Zaynab is a 68 year old female presenting to oncology rehabilitation following recent diagnosis of L breast cancer. Pt had a lumpectomy on 10/18/18 removing 4 lymph nodes and is currently on round 3/4 of chemotherapy to be followed by 5 weeks of radiation treatment. Pt reports that initially after the surgery she had poor shoulder motion on the L side. However, it has mostly come back except for tightness at the end range. Pt reports that she is currently walking regularly but has fatigue with ADL's more than typical. Additionally pt reports that she has slight numbness and tingling in her fingers and toes. Pt has a history of a B TKA with revision on the L >1 year prior which still stiffens up if she isn't moving regularly. REHAB PROBLEM LIST: Increased Pain Decreased ROM Decreased Function Decreased ADL's Decreased Mobility PREVIOUS MEDICAL HISTORY: See EMR OCCUPATION: OBJECTIVE: Pt has small incision on the anterior aspect of the L axilla. Incision is well healed without any signs of redness, wamth or infection. Posture: Rounded shoulders with minimal scapular rotation with motion. ROM: Shoulder ROM (R,L): flexion: 145 with pain, 137, abd: 172, 154, ER: 77, 76, IR: T12, L1. Strength: Palpation: Pt has minimal scar tissue along the axilla except a few cords on the anterior portion. Special Tests: Neer's (+)R, Empty can (+)R Mobility: ECOG Performance Status: Grade 1 ASSESSMENT: Pt shows signs and symptoms with L shoulder dysfunction secondary t recent surgical intervention as well as R shoulder impingement. Physical therapy is indicated to address the above listed deficits to improve and maintain pt function with ADL's and ongoing oncological intervention. Pt was educated on the physical side-effects of oncology intervention including surgery, radiation and chemo. These side-effects include neuropathy, shoulder dysfunction, fatigue, scar tissue formation and tightness, and weakness. Short Term Goals In 3 weeks pt will improve L shoulder ROM to equal to that of the R shoulder for improved function with ALD's. In 6 weeks pt will maintain ECOG performance status of grade 1 for improved function with ADL's. In 6 weeks pt will increase B UE strength to 4/5 or greater without pain for improved function with ADL's. Patient's Goals Maintain function with ongoing oncological treatment, improve shoulder function and mobility. PLAN: Patient to be seen for Manual Therapy/STM/MET Ice/Heat Range of Motion Ultrasound Stretching Iontophoresis Neuromuscular Re-ed Closed Chain Program Electrical Stim Posture/Body mechanics Gait Trg/Balance Trg Biofeedback Home Exercise Program Mech./Manual Traction Therapeutic Activities 1x/Week for 6 Weeks If you have any questions, comments, or concerns about this report or plan, please contact me at . Thank you, Mickie Ordonez, PT, DPT, CLT MTDD
[~2019-01-09 08:15] MED LIST changes: -OMEP-125 PO; +OMEP-126 PO; -PEGFILGRASTIM 6 MG/0.6 ML KIT SUBQ ONE
[2019-03-21] MEDS ORDERED: ANAS1TAB12 PO (12:07)
== END 2019-03-27 ==
LOC: PT 08:15
PROVIDERS: ATTEND Surgery
DX: M25.512 Pain in left shoulder (principal); R20.2 Paresthesia of skin; C50.912 Malignant neoplasm of unspecified site of left female breast; Z96.653 Presence of artificial knee joint, bilateral
CPT/HCPCS: 97162

== ENCOUNTER 2019-01-25 11:28 | Outpatient (RCR) | payer MEDICARE ==
[2017-03-07 12:36] VITALS: Wt 67.0 kg
[2018-11-20 14:13] VITALS: BP 122/72
--- NOTE | 2018-11-21 01:49 | TOBIN CONSULT ---
EVENT DATE: November 20, 2018 CHIEF COMPLAINT/REASON FOR REFERRAL Patient is here to discuss radiation therapy options for lymph node-positive breast carcinoma. ONCOLOGY DIAGNOSIS Invasive ductal carcinoma of the left breast. Tumor size 2.7 cm on lumpectomy, grade 3. Tumor metastatic to two of four sentinel lymph nodes. Tumor is strongly ER and MS receptor positive and HER2 negative. Patient presently receiving TC chemotherapy and has completed cycle 1 of four cycles. HISTORY OF PRESENT ILLNESS This is a pleasant 68-year-old lady who is referred to me by Dr. Millan for discussion of therapeutic options for a newly diagnosed breast carcinoma. Patient was seen with her . According to the patient, she noticed a mass in the left breast in September of this year, which appeared to be growing fairly quickly. The mass caused edema effects of the breast as well as nipple retraction. The patient was seen by Dr. Lizabeth Buckley and immediately had a mammogram and breast ultrasound. Breast ultrasound revealed the lesion to be from the 11 o'clock to 2 o'clock position, and it measured 4.5 x 3.7 x 2.0 cm. By mammogram, there was a large dense mass with ill-defined margins and spiculation. There was left nipple retraction and adjacent skin thickening. Patient was referred to Dr. Ward, who proceeded immediately with local excision and sentinel lymph node procedure on 10/18/18. The left breast tumor measured 2.5 x 2.3 x 2.7 cm. Initial margin was positive for invasive carcinoma; however, additional tissue was submitted from the medial margin, and that tissue was negative. Tumor was macrometastatic to one lymph node and micrometastatic to a second lymph node among the four lymph nodes submitted for the procedure. Largest lymph node measured 0.8 cm. Tumor was grade 3 invasive ductal carcinoma. Lymphovascular invasion is present. Patient was staged T2 N1 MX. Tumor receptors sent out and the tumor is strongly ER receptor positive at 92%, MS receptor 74.9%, HER2 1+, Ki-67 10.8%, Oncotype DX 17. The cytogenetics estimate a nine-year distant recurrence risk at 15%. Dr. Millan discussed the pros and cons of systemic chemotherapy with the patient, followed by tamoxifen or an AI. She elected to proceed with that regimen to lower her risk of recurrence and is presently receiving Cytoxan/Taxotere with good tolerance. The patient informs me that she had breast augmentation surgery in 1992. She previously underwent a bilateral oophorectomy when she was through having children in her late 30s. A few years later, she elected to have a hysterectomy as well for uterine fibroids. Influencing the patient was a family history of ovarian carcinoma in her mother at age 47, and her mother three years after the diagnosis. The patient has been drawn for the BRCA1 and BRCA2 mutation, and we are awaiting the results of that information, which will assist the patient in further determination as to whether she will have additional surgery. Patient states she has some diffuse bone pain and muscle aches which are related to underlying history of psoriatic arthritis. She is on Otezla for the last six-plus years. 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 Patient denies any headaches or weight loss. PAST MEDICAL HISTORY 1. Left breast carcinoma, history listed [facility]. 2. Psoriatic arthritis. 3. History of depression. 4. Scoliosis. 5. Hyperlipidemia. PAST SURGICAL HISTORY 1. Lumpectomy and sentinel lymph node procedure, 10/18/18. 2. Left kidney donation for brother remotely. 3. Prior breast augmentation bilaterally, 1992. 4. BSO around age 28 with estrogen use through her 50s. 5. Total abdominal hysterectomy around age 33. 6. Prior esophageal dilatation. 7. Prior left knee replacement x4. FAMILY HISTORY Notable for mother who had ovarian carcinoma at age 46-47. Maternal great aunt also had breast cancer. One maternal first cousin had breast cancer at age 46. SOCIAL HISTORY Patient is . She enjoys hunting. She has two grown sons who both live in the state. A nonsmoker. MEDICATIONS 1. Citalopram 40 mg a day. 2. Wellbutrin SR 150 mg b.i.d. 3. Ranitidine 150 mg b.i.d. 4. Atorvastatin 40 mg a day. 5. Aspirin 81 mg a day. 6. Otezla 30 mg b.i.d. 7. Vitamin D3. 8. Biotin. 9. Krill oil. 10. Vitamin B12. ALLERGIES 1. SULFA (rash). 2. CODEINE (nausea). REVIEW OF SYSTEMS Notable for muscle and joint stiffness related to her psoriatic arthritis, mild anxiety regarding the breast cancer diagnosis, otherwise unremarkable. PHYSICAL EXAMINATION GENERAL: The patient is a pleasant 68-year-old female who appears her stated age. VITALS: Weight 147, blood pressure 122/72, pulse 107, respirations 16, temperature 97, O2 saturation 98% on room air. LUNGS: Clear to auscultation bilaterally. HEART: Heart sounds regular, with no audible murmur. ABDOMEN: Soft. No gross organomegaly. BREASTS: Careful right breast examination reveals prior subpectoral implant. No dominant mass or anything suspicious on clinical exam. Left breast examination reveals postsurgical biopsy changes in the periareolar position, with some minor bruising in the medial quadrant of the right breast. Expected postsurgical induration at the biopsy site. Left axillary incision is well healed, with no suspicious findings. EXTREMITIES: Exam reveals no edema or cyanosis. NEUROLOGICAL: Intact. IMPRESSION This is a pleasant 68-year-old lady who was diagnosed with a grade 3 invasive ductal carcinoma of the left breast in September of this year. The tumor was associated with nipple inversion and edema of the skin. Fortunately, there was no mention of any subdermal lymphatic invasion. The tumor size was 2.7 cm on final histopathology, and the tumor has metastasized to two of four sentinel lymph nodes in the axilla. This is a fairly central tumor which is known to have the potential for spread to the axilla as well as the supraclavicular fossa and infraclavicular fossa. Fortunately, there are no palpable lymph nodes at this time at those locations. The patient and her wish to go over indications for radiation therapy. They also would like to discuss the BRCA status as far as what that means in terms of local, regional or distant tumor recurrence. In answering the first question regarding the indications for radiation therapy, I went through the NCCN guidelines version 4.2018. Radiation therapy is indicated for patients who elect breast conservation. For lymph node-positive patients, the treatment would also include regional lymph nodes, including the supraclavicular fossa, infraclavicular fossa, and upper axilla. The treatment course should be completed in 23 to 33 fractions based on the fractionation that is selected for the individual patient, from the [place] and [place] literature. If the patient opts for bilateral or unilateral mastectomy, the indications for radiation therapy per present NCCN guidelines are any lymph node involvement, positive margin status or multifocal tumors. The recommendations presently state, "Strongly consider radiation to the chest wall and regional lymph nodes for N1-positive patients." This is a category 1 recommendation on page BINB-3. Radiation also is considered appropriate for tumors that are larger than 5 cm. Although this tumor radiographically was in the 4 to 5 cm region, the actual size was 2.7 cm on the final specimen. Guidelines favor radiotherapy after completion of chemotherapy when chemotherapy is indicated. The literature is based on data from the EORTC randomized 26668/10241 study as well as the [place] trial. Regional recurrences in the EORTC trial were reduced to 0.7% with treatment of the breast and lymph nodes. Disease-free survival was increased at 10 years from 77% to 82% in those who received adjuvant radiation therapy as well. In the [place] breast cancer cooperative group trial, substantial survival benefit was associated with women with one to three positive axillary lymph nodes. In summary, the patient would benefit from radiation therapy to the regional lymph nodes regardless of whether she elects for mastectomy or breast conservation. In relation to the BRCA question, I was able to find the original study on PubMed of the Ashkenazi women with BRCA gene mutations. In that study published in the Journal of NCI, 1998, the BRCA gene mutation appeared to be important in women who were below the age of 50, with less importance to patients who were above that age. In 305 women who underwent breast conservation therapy, there was no increase in ipsilateral breast cancer recurrence; however, there was an increase in contralateral breast cancer, and disease-free survival was shorter in women with mutations, from 84% in 10 years to 66% in 10 years. There was a 16% change in the breast cancer survival at 10 years from the absolute numbers. The conclusion of that study is that there is no increased risk to the individual for local failure from that specific study for the BRCA1 or BRCA2 patients. It certainly does point to a more aggressive malignancy, particularly in young people less than age 50, and I think the analysis favors chemotherapy, which is presently being delivered for this patient to improve her disease-free survival. At the end of our consultation of approximately 90 minutes, the patient fully understands the rationale for adjuvant radiation therapy. She is leaning towards having a bilateral mastectomy if the BRCA mutation is present. I think that that is reasonable given her knowledge base and family history. She is fully agreeable to proceed with regional lenka radiation therapy with inclusion of the chest wall and/or breast after completion of her systemic therapy and/or additional surgery. I was also able to reassure the patient that with modern treatment techniques, the souza are angled up and not down into lung tissue. In fact, I would avoid internal mammary radiation therapy at all times and concentrate on covering the subdermal lymphatics, particularly for a patient where edema was present at presentation, and also cover the axilla, supraclavicular fossa, and infraclavicular fossa lymph nodes. The treatment course would take approximately 5-1/2 weeks to complete. Patient and were pleased with the information presented. I will meet with them again when the systemic therapy has been completed and the BRCA mutation status is known. Thank you for your referral and the opportunity to consult on the case. OVIDIO
[~2019-01-25 11:28] MED LIST changes: +OMEP-125 PO; -OMEP-126 PO
--- NOTE | 2019-01-25 23:14 | ONCOLOGY FOLLOW UP NOTE ---
EVENT DATE: January 25, 2019 CHIEF COMPLAINT/REASON FOR VISIT Patient is here to review the radiation therapy plan for recently diagnosed left breast carcinoma with lymph node metastasis. She is now completing systemic chemotherapy. ONCOLOGY DIAGNOSES AND HISTORY 1. Invasive ductal carcinoma of the left breast, periareolar location, 2.7 cm, grade 3. Tumor metastatic to two of four sentinel lymph nodes. 2. Tumor is strongly ER and MT receptor positive and HER2 negative. 3. Patient has completed four cycles of TC chemotherapy under the direction of Dr. Millan. 4. Stage T2 N1 M0. INTERVAL HISTORY Patient was seen with her for a followup appointment. Overall, she is doing well. She states she does get fatigued from the chemotherapy for seven to 14 days, but then rebounds. No recent infections. May have some minor breast discomfort when she rolls off to that side at night, but otherwise does not have any breast pain. She denies any swelling in the extremities. No headaches or bone pain. PAST MEDICAL HISTORY 1. Left breast carcinoma, [facility]. 2. Psoriatic arthritis. 3. History of depression. 4. Scoliosis. 5. Hyperlipidemia. PAST SURGICAL HISTORY 1. Lumpectomy and sentinel lymph node procedure, 10/18/18. 2. Left kidney donation for brother remotely. 3. Prior breast augmentation bilaterally, 1992. 4. BSO around age 28 with estrogen use through her 50s. 5. Total abdominal hysterectomy around age 33. 6. Prior esophageal dilatation. 7. Prior left knee replacement x4. FAMILY HISTORY Notable for mother who had ovarian carcinoma at age 46 or 47. Maternal great aunt also had breast cancer. One maternal first cousin had breast cancer at age 46. SOCIAL HISTORY Patient is . She enjoys hunting. She has two grown sons who both live in the state. A nonsmoker. MEDICATIONS 1. Citalopram 40 mg a day. 2. Wellbutrin SR 150 mg b.i.d. 3. Ranitidine 150 mg b.i.d. 4. Atorvastatin 40 mg a day. 5. Aspirin 81 mg a day. 6. Otezla 30 mg b.i.d. 7. Vitamin D3. 8. Biotin. 9. Krill oil. 10. Vitamin B12. ALLERGIES 1. SULFA (rash). 2. CODEINE (nausea). COMPREHENSIVE REVIEW OF SYSTEMS Completed and reviewed with the patient. LABORATORY STUDIES Most recent laboratory studies: Hemoglobin 12.7, white count 9.0 on 01/16/19. CA27.29 of 28.8. PHYSICAL EXAMINATION VITAL SIGNS: BP 102/65, pulse 109, respirations 16, O2 sat 92%. Weight 151. LYMPHATICS: No lymphadenopathy. LUNGS: Clear bilaterally. HEART: Heart sounds regular. BREASTS: Medium to larger size breasts bilaterally with well-healed surgical scars in the periareolar location as well as in the left axilla. No tenderness noted. Right breast benign. ABDOMEN: No gross organomegaly. NEUROLOGIC: Intact with exception of peripheral hand neuropathy and foot neuropathy. IMPRESSION This is a pleasant 69-year-old lady who was initially seen in consultation on 11/20/18. She has now completed chemotherapy and wishes to proceed with breast conservation. She will need field covering the brease and a second field(s) to cover the lymph node drainage from that location (two positive LN) at surgery. PLAN Patient is fully agreeable to proceed with left breast and regional lymph node radiation therapy. She will undergo targeting simulation next Monday and start the treatment program in approximately three to four weeks. I went through the consent form with the patient and discussed acute and late side effects and therapeutic alternatives. She wishes to proceed. Staff will contact her in the morning for times for the CT planning study. Office visit was completed in 40 minutes today, of which 35 minutes were spent face to face with the patient for clinical exam and complex counseling. OVIDIO
== END 2019-02-01 13:01 | disposition home or self-care (01) ==
LOC: RAON 11:28
PROVIDERS: ATTEND Radiology Radiation Oncology
DX: C50.912 Malignant neoplasm of unspecified site of left female breast (principal); C77.3 Secondary and unspecified malignant neoplasm of axilla and upper limb lymph nodes; Z17.0 Estrogen receptor positive status [ER+]
CPT/HCPCS: 99202

== ENCOUNTER 2019-01-27 07:31 | Emergency (ER) | payer MEDICARE ==
[2017-03-07 12:36] VITALS: Wt 67.1 kg
--- NOTE | 2019-01-27 07:47 | ER Report ---
History and Physical Time Seen By MD: 07:46 Hx. of Stated Complaint: PATIENT REPORTS COUGH FOR THE LAST FEW DAYS. SHE IS SHORT OF BREATH AND HAS A PRODUCTIVE COUGH. SHE IS REPORTING SUBJECTIVE FEVERS HPI/ROS CHIEF COMPLAINT: Cough shortness of breath HISTORY OF PRESENT ILLNESS: 69-year-old female history of breast cancer currently on her last dose of chemotherapy comes emergency Department today with a complaint of chest congestion cough and subjective fevers shortness of breath. Patient denies orthopnea and PND patient has no chest pain at this time. Patient states she feels she may have a viral upper respiratory infection but also feels this may be something more due to the fact she is on chemotherapy. Patient denies active chest pain this time abdominal pain nausea vomiting diarrhea fever chills patient no additional complaints REVIEW OF SYSTEMS: Respiratory: Cough shortness of breath Cardiovascular: No chest pain, no palpitations. Gastrointestinal: No vomiting, no abdominal pain. Musculoskeletal: No back pain. Remainder of the 14 system rev: Yes Allergies: Coded Allergies: celecoxib (Verified Allergy, Intermediate, RASH, 03/06/17) Sulfa (Sulfonamide Antibiotics) (Verified Allergy, Mild, RASH, 03/06/17) adhesive tape (Verified Allergy, Mild, ITCHING, 03/06/17) latex (Verified Allergy, Mild, RASH, 03/06/17) sulindac (Verified Allergy, Mild, RASH, 03/06/17) codeine (Verified Adverse Reaction, Mild, NAUSEA/VOMITING, 03/06/17) Home Meds Active Scripts Bupropion Hcl (WELLBUTRIN SR) 150 Mg Tablet.er, 150 MG PO BID, #180 TAB 3 Refills Take 1 tab po daily for a week , then 1 tab twice daily Prov:MARLENE LUNA MD 10/01/18 Citalopram Hydrobromide (CITALOPRAM HBR) 40 Mg Tablet, 40 MG PO QDAY, #90 TAB 3 Refills Prov:MARLENE LUNA MD 10/01/18 Atorvastatin Calcium (LIPITOR) 40 Mg Tablet, 1 TAB PO QDAY, #90 TAB 3 Refills Prov:MARLENE LUNA MD 10/01/18 Ranitidine Hcl (RANITIDINE HCL) 150 Mg Tablet, 150 MG PO BID, #180 TAB 3 Refills Prov:MARLENE LUNA MD 07/24/18 Reported Medications Krill/Om-3/Dha/Epa/Phospho/Ast (Krill Oil 500 mg Softgel) 1 Each Capsule, 1 CAP PO DAILY 10/15/18 Cyanocobalamin (Vitamin B-12) (VITAMIN B-12) 1,000 Mcg Tablet, 1000 MCG PO DAILY 10/15/18 Magnesium Oxide (MAGNESIUM) 250 Mg Tablet, 1 TAB PO DAILY 10/09/17 Cholecalciferol (Vitamin D3) (VITAMIN D3) 5,000 Unit Tablet, 1 TAB PO DAILY 10/09/17 Biotin (Biotin) 10,000 Mcg Tab.rapdis, 1 TAB PO DAILY 10/09/17 Reviewed Nurses Notes: Yes Old Medical Records Reviewed: Yes Hx Smoking: No Smoking Status: Never Smoker Hx Substance Use Disorder: No Hx Alcohol Use: No Constitutional Vital Sign - Last 24 Hours 01/27/19 01/27/19 01/27/19 01/27/19 07:31 07:35 07:38 07:42 Temp 97.8 Pulse ??? 115 Resp 20 B/P (MAP) 135/82 135/82 (99) Pulse Ox 89 O2 Delivery Room Air O2 Flow Rate 1.0 01/27/19 01/27/19 01/27/19 01/27/19 08:00 08:01 08:30 08:31 Pulse 104 102 B/P (MAP) 124/76 (92) 129/79 (96) Pulse Ox 97 95 01/27/19 09:00 B/P (MAP) 118/71 (87) Physical Exam General Appearance: The patient is alert, has no immediate need for airway protection and no current signs of toxicity. [ ] Eyes: Pupils equal and round no injection. Respiratory: Chest is non tender, lungs are clear to auscultation. Cardiac: regular rate and rhythm [ ] Gastrointestinal: Abdomen is soft and non tender, no masses, bowel sounds normal. Musculoskeletal: Neck: Neck is supple and non tender. Extremities have full range of motion and are non tender. Skin: No rashes or lesions. [ ] DIFFERENTIAL DIAGNOSIS: After history and physical exam differential diagnosis was considered for pneumonia bronchitis viral upper respiratory infection pulmonary embolus myocardial infarction Medical Decision Making Data Points Result Diagram: 01/27/19 0744 01/27/19 0744 Laboratory Hematology Test 01/27/19 00:00 01/27/19 07:44 Influenza Virus Type A (PCR) Negative (NEGATIVE) Influenza Virus Type B (PCR) Negative (NEGATIVE) Red Blood Count 3.57 M/uL (4.17-5.56) Mean Corpuscular Volume 99.3 fL (80.0-96.0) Mean Corpuscular Hemoglobin 33.2 pg (26.0-33.0) Mean Corpuscular Hemoglobin Concent 33.4 g/dL (32.0-36.0) Red Cell Distribution Width 16.7 % (11.5-14.5) Mean Platelet Volume 6.8 fL (7.2-11.1) Neutrophils (%) (Auto) % (39.4-72.5) Lymphocytes (%) (Auto) % (17.6-49.6) Monocytes (%) (Auto) % (4.1-12.4) Eosinophils (%) (Auto) % (0.4-6.7) Basophils (%) (Auto) % (0.3-1.4) Nucleated RBC Relative Count (auto) /100WBC Neutrophils # (Auto) K/uL (2.0-7.4) Lymphocytes # (Auto) K/uL (1.3-3.6) Monocytes # (Auto) K/uL (0.3-1.0) Eosinophils # (Auto) K/uL (0.0-0.5) Basophils # (Auto) K/uL (0.0-0.1) Nucleated RBC Absolute Count (auto) K/uL Neutrophils % (Manual) 70 % (39.4-72.5) Band Neutrophils % 12 % Lymphocytes % (Manual) 11 % (17.6-49.6) Monocytes % (Manual) 6 % (4.1-12.4) Eosinophils % (Manual) 0 % (0.4-6.7) Basophils % (Manual) 0 % (0.3-1.4) Metamyelocytes % 1 % Peripheral Blood Smear Yes Y/N D-Dimer Quantitative (PE/DVT) 2.67 ug/ml (0-0.50) Sodium Level 136 mmol/L (137-145) Potassium Level 4.1 mmol/L (3.5-5.0) Chloride Level 106 mmol/L (98-107) Carbon Dioxide Level 23 mmol/L (22-31) Blood Urea Nitrogen 10 mg/dl (7-18) Creatinine 1.00 mg/dl (0.52-1.04) Glomerular Filtration Rate Calc 54.7 Random Glucose 107 mg/dl (75-110) Calcium Level 9.3 mg/dl (8.4-10.2) Total Bilirubin 0.4 mg/dl (0.2-1.3) Aspartate Amino Transf (AST/SGOT) 29 U/L (0-35) Alanine Aminotransferase (ALT/SGPT) 15 U/L (0-56) Alkaline Phosphatase 137 U/L (0-126) Troponin I < 0.012 ng/ml B-Type Natriuretic Peptide 27 pg/ml (0-100) Total Protein 6.5 g/dl (6.3-8.2) Albumin 3.9 g/dl (3.5-5.0) Chemistry Test 01/27/19 00:00 01/27/19 07:44 Influenza Virus Type A (PCR) Negative (NEGATIVE) Influenza Virus Type B (PCR) Negative (NEGATIVE) White Blood Count 23.5 k/uL (4.5-11.0) Red Blood Count 3.57 M/uL (4.17-5.56) Hemoglobin 11.8 g/dL (12.0-16.0) Hematocrit 35.4 % (34.0-47.0) Mean Corpuscular Volume 99.3 fL (80.0-96.0) Mean Corpuscular Hemoglobin 33.2 pg (26.0-33.0) Mean Corpuscular Hemoglobin Concent 33.4 g/dL (32.0-36.0) Red Cell Distribution Width 16.7 % (11.5-14.5) Platelet Count 230 K/uL (150-450) Mean Platelet Volume 6.8 fL (7.2-11.1) Neutrophils (%) (Auto) % (39.4-72.5) Lymphocytes (%) (Auto) % (17.6-49.6) Monocytes (%) (Auto) % (4.1-12.4) Eosinophils (%) (Auto) % (0.4-6.7) Basophils (%) (Auto) % (0.3-1.4) Nucleated RBC Relative Count (auto) /100WBC Neutrophils # (Auto) K/uL (2.0-7.4) Lymphocytes # (Auto) K/uL (1.3-3.6) Monocytes # (Auto) K/uL (0.3-1.0) Eosinophils # (Auto) K/uL (0.0-0.5) Basophils # (Auto) K/uL (0.0-0.1) Nucleated RBC Absolute Count (auto) K/uL Neutrophils % (Manual) 70 % (39.4-72.5) Band Neutrophils % 12 % Lymphocytes % (Manual) 11 % (17.6-49.6) Monocytes % (Manual) 6 % (4.1-12.4) Eosinophils % (Manual) 0 % (0.4-6.7) Basophils % (Manual) 0 % (0.3-1.4) Metamyelocytes % 1 % Peripheral Blood Smear Yes Y/N D-Dimer Quantitative (PE/DVT) 2.67 ug/ml (0-0.50) Glomerular Filtration Rate Calc 54.7 Calcium Level 9.3 mg/dl (8.4-10.2) Total Bilirubin 0.4 mg/dl (0.2-1.3) Aspartate Amino Transf (AST/SGOT) 29 U/L (0-35) Alanine Aminotransferase (ALT/SGPT) 15 U/L (0-56) Alkaline Phosphatase 137 U/L (0-126) Troponin I < 0.012 ng/ml B-Type Natriuretic Peptide 27 pg/ml (0-100) Total Protein 6.5 g/dl (6.3-8.2) Albumin 3.9 g/dl (3.5-5.0) Coagulation Test 01/27/19 07:44 D-Dimer Quantitative (PE/DVT) 2.67 ug/ml ED Course/Re-evaluation ED Course ED clinical course medical decision making 69-year-old female comes emergency Department history of breast cancer currently on chemotherapy comes in with viral upper respiratory type symptoms chest x-ray shows nothing acute she did have an elevated d-dimer and white count over this could all be acute phase CT angiogram was performed show nothing acute infectious-moran old nodular changes but nothing of any real consequence breath sounds otherwise unremarkable diagnosis viral upper respiratory Decision to Disposition Date: January 27, 2019 Decision to Disposition Time: 09:33 Depart Departure Latest Vital Signs Vital Signs Date Time Temp Pulse Resp B/P (MAP) Pulse Ox O2 Delivery O2 Flow Rate FiO2 01/27/19 09:00 118/71 (87) 01/27/19 08:31 102 95 01/27/19 07:42 1.0 01/27/19 07:35 97.8 20 Room Air Impression: Primary Impression: Upper respiratory disease Condition: Improved Disposition: HOME OR SELF-CARE Referrals: MARLENE LUNA MD (PCP) 5 Days Patient Instructions: Upper Respiratory Infection (DC) VIDA AUGUSTINE MD January 27, 2019 07:47
[2019-01-27 07:57] LABS: PLATELET COUNT, AUTOMATED 230 K/uL (150-450)
--- NOTE | 2019-01-27 08:01 | EKG ---
FACILITY: [facility] PATIENT NAME: PHILLIP WARREN : [id number] MR: [id number] V: [id number] EXAM DATE: ORDERING PHYSICIAN: VIDA AUGUSTINE TECHNOLOGIST: DOC Test Reason : SOB Blood Pressure : / mmHG Vent. Rate : 105 BPM Atrial Rate : 105 BPM P-R Int : 100 ms QRS Dur : 082 ms QT Int : 340 ms P-R-T Axes : 010 053 019 degrees QTc Int : 449 ms Sinus tachycardia with short TN Otherwise normal ECG Confirmed by VINCE GALICIA ([id number]) on 01/27/2019 5:43:53 PM Referred By: FAWN Confirmed By:VINCE GALICIA
--- NOTE | 2019-01-27 08:42 | RADIOLOGY IMAGING REPORT ---
FACILITY: [facility] [place] PATIENT NAME: Zaynab Harper : 1950 MR: [id number] V: [id number] EXAM DATE: ORDERING PHYSICIAN: VIDA AUGUSTINE TECHNOLOGIST: Location: [facility] [place] Patient: Zaynab Harper : 1950 Visit/Account:[id number] Date of Sevice: 01/27/2019 Chest with lateral, 2 views. HISTORY: Shortness of breath. COMPARISON: 03/08/2017. Oxygen tubing projects on the right upper chest. The heart and mediastinum are unremarkable. No bulk y adenopathy. Pulmonary vessels are unremarkable. The lungs are clear. The pleural surfaces are unr emarkable. No pneumothorax. Breast implants are present bilaterally. No acute bony abnormalities. IMPRESSION: Voluminous lungs. Otherwise no evidence of acute cardiopulmonary disease. Report Dictated By: Coleman Lilly MD at 01/27/2019 8:36 AM Report E-Signed By: Coleman Lilly MD at 01/27/2019 8:39 AM WSN:[id number]
[2019-01-27] MEDS ORDERED: NS(*) 0.9% 50 ML BAG 50 ML ONE (08:53)
[2019-01-27] MEDS ORDERED: IOPAMIDOL 76% 150 ML INFUS BTL 150 ML ONE (08:53)
--- NOTE | 2019-01-27 09:22 | RADIOLOGY IMAGING REPORT ---
FACILITY: [facility] PATIENT NAME: Zaynab Harper : 1950 MR: [id number] V: [id number] EXAM DATE: ORDERING PHYSICIAN: VIDA AUGUSTINE TECHNOLOGIST: Location: [facility] Patient: Zaynab Harper : 1950 Visit/Account:[id number] Date of Sevice: 01/27/2019 CT angiogram chest with contrast Indication: Short of breath. Comparison: None available. Technique: Axial CT images are obtained through the chest after administration of 80 mL Isovue 370 IV contrast. Reformatted coronal and sagittal images were reviewed as well as coronal MIP images. One o f the following dose optimization techniques was utilized in the performance of this exam: Automated exposure control; adjustment of the mA and/or kV according to the patient's size; or use of an iterat michel reconstruction technique. Specific details can be referenced in the facility's radiology CT exa m operational policy. FINDINGS: No evidence of filling defect within the pulmonary vasculature to suggest pulmonary embolus. There is no axillary adenopathy. There are bilateral breast implants in place. There may be intracaps ular rupture of the implants. No enlarged hilar or mediastinal lymph nodes are present. There are scattered calcified mediastinal a nd left hilar nodes identified which are characteristic of old granulomatous disease. There is no pericardial effusion or pleural effusion identified. Examination of the lung windows demonstrates dependent lower lobe atelectasis. There is biapical pleu ral parenchymal scarring. Limited images of the upper abdomen demonstrate a calcification within the liver which is characteris tic of old granulomatous disease. No thoracic compression deformity is seen. IMPRESSION: 1. No evidence of acute pulmonary embolism. 2. Scattered calcified hilar and mediastinal lymph nodes characteristic of old granulomatous disease. 3. No acute focal infiltrate. Report Dictated By: Julio César Tovar at 01/27/2019 9:07 AM Report E-Signed By: Julio César Tovar at 01/27/2019 9:18 AM WSN:[id number]
[2019-01-27 09:30] VITALS: BP 127/75
== END 2019-01-27 09:55 | disposition home or self-care (01) ==
LOC: ER 07:47
DX: J06.9 Acute upper respiratory infection, unspecified (principal)
CPT/HCPCS: 71046; 71275; 83880; 84484; 85025; 85379; 87502; 93005; 99284; J7050; Q9967; 82040; 82247; 82310; 82374; 82435; 82565; 82947; 84075; 84132; 84155; 84295; 84450; 84460; 84520

== ENCOUNTER → 2019-02-07 | Outpatient (RCR) | payer MEDICARE ==
[2017-03-07 12:36] VITALS: Ht 164.5 cm; Wt 68.7 kg
[2018-11-09 09:37] VITALS: BP 121/72
--- NOTE | 2018-11-09 12:58 | ONCOLOGY CONSULTATION ---
EVENT DATE: November 09, 2018 REFERRING PHYSICIAN José Manuel Ward MD PRIMARY CARE PHYSICIAN Lizabeth Buckley MD REASON FOR CONSULTATION Evaluation and management of left breast cancer. ONCOLOGY HISTORY Patient is a 68-year old female who presented with palpable mass of her left breast. She had a screening mammogram on October 14, 2018, which showed large irregular spiculated mass so the patient had ultrasound of the left breast the same day, which showed 4.5 cm large heterogenous solid mass at 11 to 12 o'clock position. 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 Two out of four sentinel lymph nodes came back positive for metastasis, one with micrometastasis. The medial margin was positive initially and negative after re-excision. ER 92% positive, KY 74.9% positive, HER2/jair negative by FISH. Ki-67 was 10.8%. Oncotype DX testing showed recurrence score of 17 with distant recurrent risk at nine years 15% with no apparent benefit of chemotherapy. PAST MEDICAL HISTORY 1. Psoriatic arthritis. 2. Scoliosis. 3. Hypercholesterolemia. PAST SURGICAL HISTORY 1. Breast augmentation in 1992. 2. 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 3. She had two left foot surgeries. 4. She had esophageal dilatation. 5. Total abdominal hysterectomy. 6. Bilateral salpingo-oophorectomy done on separate occasions. FAMILY HISTORY Mother had ovarian cancer at age 47 years. Maternal aunts with breast cancer and maternal cousin with breast cancer in her 50s. SOCIAL HISTORY Patient is with two sons. 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 She is a never smoker. Denies any abuse of alcohol or illicit drugs. CURRENT MEDICATIONS 1. Docusate sodium 100 mg capsule twice a day. 2. Wellbutrin SR 150 mg twice a day. 3, Citalopram 40 mg daily. 4. Ranitidine 150 mg twice daily. 5. Krill Oil 500 mg daily. 6. Vitamin B12 1000 mcg tablet daily. 7. Atorvastatin 40 mg daily. 8. Aspirin 81 mg daily. 9. Magnesium Oxide 250 mg daily. 10. Vitamin D3 5000 units daily. 11. Biotene 10,000 mcg tablet daily. 12. Otezla 30 mg tablet twice daily. ALLERGIES SULFA, which causes skin rash, and CODEINE, which causes vomiting. REVIEW OF SYSTEMS CONSTITUTIONAL: She has mild sweating. HEENT: Ears: No tinnitus or hearing problem. Nose: She has occasional epistaxis. Throat: No sore throat or mouth ulcers. Eyes: No diplopia or visual changes. RESPIRATORY: She has cough with expectoration. CARDIOVASCULAR: No chest pain, orthopnea, or paroxysmal nocturnal dyspnea (PND). No edema. No palpitations. GASTROINTESTINAL: No nausea or vomiting. No diarrhea or constipation. No change in bowel movements. No heartburn or swallowing difficulties. No abdominal pain. No jaundice. No hematemesis, melena or rectal bleeding. GENITOURINARY: Patient has had heavy periods for years, and she has been seen by a chemistry quality control technician, and she was offered uterine ablation, but the patient refused the procedure. As per patient, she has had heavy periods for a total of seven days every month. MUSCULOSKELETAL: She has psoriatic arthritis with pain in her hands, back, shoulders, ankles. She had bilateral knee replacement also. NEUROLOGICAL: She has tingling and numbness in her feet. She has also headache. She has radicular pain in her right lower extremity. HEMATOLOGIC/LYMPHATIC: She is weak, tired and fatigued. SKIN: No skin rash or lumps. PSYCHIATRIC: No anxiety or depression. PHYSICAL EXAMINATION GENERAL: Looks stable. Well-developed, well-nourished, and in no acute distress. VITAL SIGNS: Blood pressure 121/72, pulse 84 per minute, respirations 16 per minute, temperature 96.4, pulse ox 96% on room air. HEENT: Head: Atraumatic. No sinus tenderness to palpation. Eyes: No icterus or conjunctivitis. Mouth and Throat: No oral thrush or mucositis. NECK: Supple. No cervical or supraclavicular lymphadenopathy. LUNGS: Clear to auscultation and percussion bilaterally. HEART: Regular rate and rhythm. No gallops, murmurs, clicks or rubs. ABDOMEN: Soft and lax. No tenderness. No hepatosplenomegaly. No masses. EXTREMITIES: No cyanosis, clubbing or edema. LYMPHATICS: No peripheral lymphadenopathy. NEUROLOGICAL: Conscious, alert and oriented x3. No focal motor or sensory deficits. PSYCHIATRIC: Mood and affect appear normal. SKIN: No skin rash, bruise or purpuric eruption. 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 Two out of four sentinel lymph nodes were positive for metastasis. One of them was with micrometastatic disease. Her medial margin was positive initially but negative after re- excision. ER 92% positive, KY 74.9% positive, HER2/jair negative by FISH. Ki-67 was 10.8%. Oncotype DX testing came with a recurrence score of 17 with distant recurrent risk at nine years of 15% with no apparent benefit of chemotherapy. I had a long discussion with the patient and her today regarding further management. Pathology is suggestive of aggressive tumor with grade 3/3 and she had also two positive lymph nodes and for this reason I am planning to give her adjuvant chemotherapy, giving her the benefit of the doubt, given also that her Oncotype DX testing showed low recurrence score of 17. I am planning to treat her with milder chemotherapy with TC regimen with Taxotere and cyclophosphamide for four cycles and after that I will start as well hormonal therapy as her tumor was ER/KY positive. Patient is agreeable with the plan of management. Patient also has positive family history of ovarian and breast cancer and she is interested in having BRCA1 and 2 genetic testing to be done. After we get precise information of her family history, we are going to request that test because patient, if she is positive for BRCA 1 or 2, she will decide to have bilateral mastectomy rather than leaving her breasts. During her chemotherapy, we will get the results of that test. If the patient would have bilateral mastectomy, then she will not need radiation therapy after that. I explained that to the patient. She is agreeable to the plan of management. For administration of chemotherapy, I am planning to place PICC line. Patient will start her treatment next week, November 16, 2018, with TC regimen with Taxotere and cyclophosphamide every three weeks for a total of four cycles. I am planning to see her prior to her second cycle of chemotherapy with CBC, chem panel and CEA 27.29, which will also be checked prior to her first cycle of chemotherapy. PLAN 1. PICC line placement. 2. BRCA1 and 2 genetic testing. 3. Patient to return in one week with CBC, chem panel, CA 27.29. 4. Adjuvant chemotherapy with Taxotere and Cyclophosphamide (TC regimen) to start on November 16, 2018. 5. CBC and chem panel to be checked weekly. 6. Patient to contact us for any new concerns or complaints. MTDD
[2018-11-14 13:52] VITALS: BP 125/75
--- NOTE | 2018-11-14 14:10 | ONCOLOGY CHEMO TEACHING ---
EVENT DATE: November 14, 2018 DIAGNOSIS Left breast cancer. The patient, her and friend are seen today for chemotherapy teaching. A total of 60 minutes was spent with them, 100% of which was [id number] counseling. HISTORY OF PRESENT ILLNESS Patient is a 68-year old female who is seen today to discuss upcoming treatment with Taxotere, Cytoxan and Neulasta. Overall, she feels well and is ready to "get started". She had a PICC line placed yesterday. We spent some time discussing BRCA testing due to her family history and this will be drawn tomorrow. She denies any specific complaints and feels that she has healed well from her lumpectomy. ONCOLOGY HISTORY Patient is a 68-year old female who presented with a palpable mass in her left breast. Mammogram and ultrasound on October 14, 2018 showed a large irregular spiculated mass, 4.5 cm at 11 o'clock to 12 o'clock position. She underwent left lumpectomy and sentinel lymph node biopsy on October 18, 2018. Pathology was positive for a 2.7 cm invasive, poorly differentiated ductal carcinoma with two of four sentinel lymph nodes positive, one with micrometastasis. The medial margin was positive initially but negative after re-excision. ER positive 92%, NE positive 74.9%, HER2/jair negative for FISH, Ki-67 10.8%. Oncotype DX testing showed a recurrent score of 17 with a risk of distant disease recurrence of 15% on Tamoxifen alone. To begin Taxotere and Cytoxan followed by Neulasta on November 15, 2018. PAST MEDICAL HISTORY 1. Left breast cancer, September 2018. 2. Psoriatic arthritis. 3. Scoliosis. 4. Hyperlipidemia. 5. Depression. PAST SURGICAL HISTORY 1. Breast augmentation, 1992. 2. Left kidney donation. 3. Left foot surgery x2. 4. Esophageal dilatation. 5. Total abdominal hysterectomy. 6. BSO. 7. Left knee replacement x4. 8. Left lumpectomy, October 18, 2018. FAMILY HISTORY Mother had ovarian cancer at age 46. Maternal great aunt had breast cancer at unknown age. Maternal first cousin had breast cancer at 46. SOCIAL HISTORY Patient is . They have two grown sons. She is retired. She is a never smoker. She denies abuse of alcohol or illicit drugs. MEDICATIONS 1. Docusate sodium 100 mg b.i.d. 2. Wellbutrin SR 150 mg b.i.d. 3. Citalopram 40 mg daily. 4. Ranitidine 150 mg b.i.d. 5. Krill Oil. 6. Vitamin B12. 7. Atorvastatin 40 mg daily. 8. Aspirin 81 mg daily. 9. Vitamin D3 5000 IU daily. 10. Biotene. 11. Otezla 30 mg b.i.d. ALLERGIES SULFA, which causes rash, and CODEINE, which causes vomiting. DISCUSSION 1. A total of 60 minutes was spent in counseling today, 100% of which was face to face. At today's chemotherapy teaching session we discussed her diagnosis as well as the planned chemotherapy regimen and toxicities associated with Taxotere, Cytoxan and Neulasta. Handouts of each drug were provided and reviewed in detail. 2. Side effects and toxicities of chemotherapy agents included, but were not limited to: A. Bone marrow suppression, specifically neutropenia. She is instructed to contact our offices with any signs of infection. CBC will be monitored routinely. We discussed common sense approaches including routine hand washing and avoidance of crowds/sick people if neutropenic. B. GI side effects. Discussed the possibility of nausea, vomiting, diarrhea and constipation. She will receive IV antiemetics and will be prescribed antiemetics for home use. If she were to have diarrhea, recommended Imodium. If she were to have constipation, recommended Senna-S or Miralax routinely. Further interventions will be made based on side effects. C. side effects. Discussed the importance of adequate hydration (minimum 8 cups of fluid per day) and emptying the bladder on a regular basis. IV hydration can be scheduled as needed. D. Mouth sores. Recommended salt water or baking soda gargles as needed. E. Skin toxicity. Discussed that chemotherapy was very drying to the skin and mucous membranes. Recommended routine moisturizing as well as sun protection. F. Neurotoxicity. Discussed symptoms of peripheral neuropathy. She will be monitored of these symptoms and will notify us if progressive. G. Alopecia. Patient is aware that we have a wig shop here at the clinic if she would like to pursue. H. Fatigue. Discussed that this is one of the most common complaints of patients undergoing chemotherapy. I have encouraged her to remain as active as possible, taking frequent rests as needed. I. Infusion reaction. Reviewed IV premedications. She will be monitored closely during infusions. 3. I have instructed the patient to call our office if she is prescribed any new medications. It is recommended that multiple supplements or herbal medications may not be taken as these may interfere with the action of the chemotherapy. 4. Discussed dietary issues associated with chemotherapy including anorexia and changes in taste. A handout of nutrition information is given. 5. Office contact information ([phone]) is given. I have encouraged the patient to call with any issues regarding treatment. 6. Patient will begin cycle #1 of Taxotere and Cytoxan followed by Amarjit on November 15, 2018. BRCA testing will be drawn at that time. Otezla will be held during her treatment. MTDD
--- NOTE | 2018-11-15 08:33 | NUR ---
SW assisted pt with selectin of wig and head coverings yesterday. Pt selected two wigs and two head coverings.
[2018-11-15 12:21] VITALS: BP 123/67
[2018-11-15] MEDS: PALONOSETRON 0.25 MG/5 ML VIAL IVP PRN (12:54)
[2018-11-15 15:40] VITALS: BP 135/75
[2018-11-22 13:02] VITALS: BP 116/81
[2018-11-22 13:18] LABS: PLATELET COUNT, AUTOMATED 165 K/uL (150-450)
--- NOTE | 2018-11-23 13:11 | ONCOLOGY FOLLOW UP NOTE ---
EVENT DATE: November 22, 2018 DIAGNOSIS Left breast cancer. The patient, her and friend are seen today for chemotherapy teaching. A total of 60 minutes was spent with them, 100% of which was [id number] counseling. HISTORY OF PRESENT ILLNESS Patient is a 68-year old female who initiated Taxotere, Cytoxan with Neulasta support one week ago. She has a PICC line, BRCA testing is currently pending. She is here today for one week toxicity check after initiating Cycle #1. She reports overall feeling well but does report some mild constipation and a slightly sore mouth but no visible mouth sores. She also has a slight rash between her thumb and forefinger bilaterally. ONCOLOGY HISTORY Patient is a 68-year old female who presented with a palpable mass in her left breast. Mammogram and ultrasound on October 14, 2018 showed a large irregular spiculated mass, 4.5 cm at 11 o'clock to 12 o'clock position. She underwent left lumpectomy and sentinel lymph node biopsy on October 18, 2018. Pathology was positive for a 2.7 cm invasive, poorly differentiated ductal carcinoma with two of four sentinel lymph nodes positive, one with micrometastasis. The medial margin was positive initially but negative after re-excision. ER positive 92%, OK positive 74.9%, HER2/jair negative for FISH, Ki-67 10.8%. Oncotype DX testing showed a recurrent score of 17 with a risk of distant disease recurrence of 15% on Tamoxifen alone. She initiated Taxotere and Cytoxan followed by Neulasta on November 15, 2018. PAST MEDICAL HISTORY 1. Left breast cancer, September 2018. 2. Psoriatic arthritis. 3. Scoliosis. 4. Hyperlipidemia. 5. Depression. PAST SURGICAL HISTORY 1. Breast augmentation, 1992. 2. Left kidney donation. 3. Left foot surgery x2. 4. Esophageal dilatation. 5. Total abdominal hysterectomy. 6. BSO. 7. Left knee replacement x4. 8. Left lumpectomy, October 18, 2018. FAMILY HISTORY Mother had ovarian cancer at age 46. Maternal great aunt had breast cancer at unknown age. Maternal first cousin had breast cancer at 46. SOCIAL HISTORY Patient is . They have two grown sons. She is retired. She is a never smoker. She denies abuse of alcohol or illicit drugs. MEDICATIONS 1. Docusate sodium 100 mg b.i.d. 2. Wellbutrin SR 150 mg b.i.d. 3. Citalopram 40 mg daily. 4. Ranitidine 150 mg b.i.d. 5. Krill Oil. 6. Vitamin B12. 7. Atorvastatin 40 mg daily. 8. Aspirin 81 mg daily. 9. Vitamin D3 5000 IU daily. 10. Biotene. 11. Otezla 30 mg b.i.d. ALLERGIES SULFA, which causes rash, and CODEINE, which causes vomiting. REVIEW OF SYSTEMS A 12-point review of systems is performed and is negative except as stated above. As noted, patient does report some constipation but has only tried Colace one capsule x1. She also reports a rash to her hands bilaterally as noted above. She also has reports of a mildly sore tongue and mouth but no mouth sores. PHYSICAL EXAMINATION VITAL SIGNS: Weight per chart/ last visit on November 16, 2018, is 67.7 kg, T 97.4 degrees F, BP 116/81, P 86, R 18, oxygen saturation 95% on room air. GENERAL: Patient is a well-developed woman who appears to be in no acute distress. HEAD: Atraumatic. No sinus tenderness to palpation. EYES: No icterus or conjunctivitis. MOUTH: Moist mucous membranes. Tip of tongue is slightly erythematous. There are no ulcerations or lesions. Patient does have a somewhat erythematous posterior pharynx with no plaques or exudate. NECK: Supple. No cervical or supraclavicular lymphadenopathy. LUNGS: Clear to auscultation and percussion bilaterally. HEART: Regular rate and rhythm. No gallops, murmurs, clicks or rubs. ABDOMEN: Soft, non-tender, non-distended. No hepatosplenomegaly. No masses. EXTREMITIES: No cyanosis, clubbing or edema. LYMPHATICS: No peripheral lymphadenopathy. NEUROLOGICAL: Awake, alert and oriented x3. No focal motor or sensory deficits. PSYCHIATRIC: Mood and affect appear normal. DERM: Patient has a grade 1, mildly erythematous rash, consistent with Taxotere, noted to the area between her thumb and forefinger bilaterally. It is mildly pruritic. There is no pus or discharge. This is localized. LABORATORY CBC today: WBC 2.3, ANC 0.3, hemoglobin 13.3, hematocrit 35.5%, platelets 155,000. IMPRESSION AND PLAN Patient is a 68-year old female who presented with a palpable mass in her left breast. Mammogram and ultrasound on October 14, 2018, showed a large irregular spiculated mass, 4.5 cm, at 11 o'clock to 12 o'clock position. She underwent left lumpectomy and sentinel lymph node biopsy on October 18, 2018. Pathology was positive for a 2.7 cm invasive, poorly differentiated ductal carcinoma with two of four sentinel lymph nodes positive, one with micrometastasis. The medial margin was positive initially but negative after re-excision. ER positive 92%, OK positive 74.9%, HER2/jair negative for FISH, Ki-67 10.8%. Oncotype DX testing showed a recurrent score of 17 with a risk of distant disease recurrence at 15% on Tamoxifen alone. She initiated Taxotere and Cytoxan followed by Neulasta on November 15, 2018. She is here today for a one week toxicity check. BRCA testing is currently pending. 1. Breast cancer: Patient seems to have tolerated her first cycle of Taxotere and Cytoxan overall quite well. She reports eating and drinking well. 2. Constipation: We discussed the necessity of a good bowel regimen. She is going to start Colace 100 mg capsules b.i.d. as well as MiraLAX powder q.a.m. She is aware to hold MiraLAX and change that to every other day if she begins to have excessive stooling. Otherwise, she will continue on this daily. We also discussed the importance of adequate hydration and nutrition in regards to constipation. 3. Neutropenia: Total WBC today is 2.3 with ANC of 0.3. She is one week out from her first cycle with TC and did receive Neulasta on Monday. Counts are as expected. We did review neutropenic precautions today. She is aware to notify us for any infection-type symptoms or any temperature of 100.5 degrees Fahrenheit or greater. 4. CMP on today's date of service was within normal limits with a minimally low sodium at 135. Rest of CMP was unremarkable. 5. Derm: Patient has a grade 1 rash noted to her inner thumb and forefinger, very consistent with Taxotere-induced rash. She was instructed to start topical hydrocortisone cream OTC and may alternate with Benadryl OTC topical cream. She will notify us if this worsens or becomes too pruritic. 6. Stomatitis: Patient does report some mild oral discomfort but there are no oral lesions or ulcerations. Her posterior pharynx is mildly erythematous but there are no signs of infection. She was instructed on a good regimen using baking soda and warm water gargles and rinses along with using Aloe juice as a gargle or swish and spit or swish and swallow solution. She can use this q.i.d. p.r.n. She is to notify us if this worsens. Patient did ask about following up with a dentist and reports a history of a couple of cracked upper molars. I did instruct her to wait at least another week until she is further out from chemotherapy before seeing a dentist. If she does not have any pain to the area, this may be placed on hold until she has completed all planned chemotherapy. 7. Patient will return to the clinic next week as scheduled. MTDD
[2018-11-29 12:49] LABS: PLATELET COUNT, AUTOMATED 261 K/uL (150-450)
[2018-11-29 14:54] VITALS: BP 136/70
--- NOTE | 2018-11-29 23:47 | ONCOLOGY FOLLOW UP NOTE ---
EVENT DATE: November 29, 2018 DIAGNOSIS Left breast cancer, BRCA1 and 2 negative. HISTORY OF PRESENT ILLNESS Patient is a 68-year-old female who initiated Taxotere and Cytoxan with Neulasta support on 11/15/18. She has completed one cycle thus far and will be due for her second cycle next week. She had a PICC line placed in the left AC, which she is tolerating well. She feels that she has overall healed well from her left lumpectomy. She has been awaiting BRCA results, which we just received earlier this week. She is BRCA1 and 2 negative. At her visit last week, she did have some complaints of general stomatitis, but no ulcerations, as well as constipation and a grade 1 rash noted to her inner thumb and forefinger bilaterally, which was very consistent with a Taxotere-induced rash. As this was only grade 1 and tolerable, it was recommended that she try topical hydrocortisone cream OTC with option to alternate with Benadryl OTC topical cream. She was also instructed on proper bowel regimen to include MiraLAX powder one capful daily along with docusate one capsule b.i.d. For her stomatitis, it was recommended that she try baking soda/warm water gargles along with aloe juice. Today, she tells me that she has used the aloe juice with some good results as well as MiraLAX and Colace. She has not had any diarrhea, but has had constipation, though improved. Her energy level is normal. She has started to notice some hair thinning, in particular in the eyebrows and eyelashes. Today, she has some other questions regarding diet and sexual activity. PAST MEDICAL HISTORY 1. Left breast cancer September 2018. 2. Psoriatic arthritis. 3. Scoliosis. 4. Hyperlipidemia. 5. Depression. PAST SURGICAL HISTORY 1. Breast augmentation 1992. 2. Left kidney donation. 3. Left foot surgery times two. 4. Esophageal dilatation. 5. Total abdominal hysterectomy. 6. BSO. 7. Left knee replacement times four. 8. Left lumpectomy October 18, 2018. FAMILY HISTORY Mother had ovarian cancer at age 46. Maternal great aunt had breast cancer at unknown age. Maternal first cousin had breast cancer at 46. SOCIAL HISTORY Patient is . They have two grown sons. She is retired. She is a never smoker. She denies abuse of alcohol or illicit drugs. MEDICATIONS 1. Docusate sodium 100 mg b.i.d. 2. Wellbutrin SR 150 mg b.i.d. 3. Citalopram 40 mg daily. 4. Ranitidine 150 mg b.i.d. 5. Krill Oil. 6. Vitamin B12. 7. Atorvastatin 40 mg daily. 8. Aspirin 81 mg daily. 9. Vitamin D3 5000 International Units daily. 10. Biotene. 11. Otezla 30 mg b.i.d. 12. MiraLAX powder one capful daily. ALLERGIES SULFA which causes rash and CODEINE which causes vomiting. REVIEW OF SYSTEMS A 12-point review of systems is performed and is negative except as stated above. CONSTITUTIONAL: Patient denies any recent fevers or infections. She reports feeling overall fairly well. EYES: Patient reports a history of chronic dry eye syndrome and tells me that she has a prescription for Restasis at home. She has not noted any excessive tearing of the eye. ENT, MOUTH: Patient reports that she still has some general stomatitis, but this is somewhat improved. No ulcerations. No dysphagia or odynophagia. Food has started to taste differently to her. She also reports somewhat increased salivation, though this is manageable. No nausea associated with that. GASTROINTESTINAL: She is using MiraLAX and Colace, and constipation has improved, though persists. NEUROLOGIC: She denies any numbness or tingling in any extremity. Patient reports intermittent, almost daily or every other day headaches,since initiating chemotherapy, though these respond quite well to Tylenol. They don't last very long. She tells me that she simply does not like taking medications. She denies any neurological deficits with these headaches and has not noted any photosensitivity, photophobia, nausea, or vomiting with these headaches. They are fleeting. PSYCHIATRIC: She denies any severe depression, anxiety, or suicidal or homicidal ideation. DERM: Patient tells me that her rash in her hands bilaterally has significantly improved compared to last week. She does not notice any significant pruritus and tells me that it is less red. ENDOCRINE: Patient has noted some thinning of her hair and in particular in her eyebrows and eyelashes. PHYSICAL EXAMINATION VITAL SIGNS: Weight 66.7 kg per chart on 11/15/18. T 98.0 degrees F, BP 136/70, P 79, R 16, oxygen saturation 92% room air. GENERAL: Patient is a pleasant 68-year-old woman who appears well nourished, well hydrated, and who appears to be in no acute distress. HEAD: Atraumatic. No sinus tenderness to palpation. EYES: No icterus or conjunctivitis. Sclerae anicteric. On exam today, I did note that patient had some mild tearing noted to the right eye. She does have a history of chronic dry eye syndrome. She denied any excessive tearing. No signs consistent with epiphora. MOUTH: Moist mucous membranes. She has some mild stomatitis which has improved compared to last visit. Pharynx is still mildly erythematous, but improved compared to last visit. No plaques or exudate. No suspicious ulcerations or lesions. NECK: Supple. No cervical or supraclavicular lymphadenopathy. LUNGS: Clear to auscultation and percussion bilaterally. HEART: Regular rate and rhythm. No gallops, murmurs, clicks, or rubs. EXTREMITIES: No cyanosis, clubbing, or edema. LYMPHATICS: No peripheral lymphadenopathy. NEUROLOGIC: Awake, alert, and oriented times three. No focal motor or sensory deficits. PSYCHIATRIC: Mood and affect appear normal. DERM: Patient's grade 1 rash noted to the area between her thumb and forefinger bilaterally has significantly improved. It is more dry. It is only faintly erythematous. There is no pus or discharge. LABORATORY CBC today: WBC 6.8, hemoglobin 14.3, hematocrit 41.3%, platelets 261,000. Manual differential is pending. ANC appears approximately 3000. CMP today: Sodium normal at 137, potassium normal at 4.1, BUN and creatinine normal with serum creatinine 0.90, calcium normal, 9.2, total bili normal, 0.3, AST normal at 18, ALT normal at 13, alkaline phosphatase normal at 98, albumin normal at 4.0, glucose minimally elevated at 120. IMPRESSION AND PLAN Patient is a 68-year old female who presented with a palpable mass in her left breast. Mammogram and ultrasound on October 14, 2018, showed a large irregular spiculated mass, 4.5 cm, at 11 o'clock to 12 o'clock position. She underwent left lumpectomy and sentinel lymph node biopsy on October 18, 2018. Pathology was positive for a 2.7 cm invasive, poorly differentiated ductal carcinoma with two of four sentinel lymph nodes positive, one with micrometastasis. The medial margin was positive initially but negative after re-excision. ER positive 92%, AK positive 74.9%, HER2/jair negative for FISH, Ki-67 of 10.8%. Oncotype DX testing showed a recurrent score of 17 with a risk of distant disease recurrence at 15% on Tamoxifen alone. She initiated Taxotere and Cytoxan, followed by Neulasta on November 15, 2018. She has completed one cycle thus far and is due for her next cycle next week. BRCA testing was resulted earlier this week, which revealed negative results. Patient was made aware of results today and was provided with copy. She did have a mild neutropenia last week and also had some constipation and stomatitis. She also had a grade 1 Taxotere-induced rash. 1. Breast cancer: Appropriate labs were checked today as noted above. Patient will proceed with current treatment as planned. We reviewed her BRCA results which were negative. She was provided with original copies. She is aware that a positive result would alter treatment course with potentially bilateral mastectomy, though she will discuss surgery with Medical Oncology at her next visit. She will return to clinic next week for Cycle #2 as planned. 2. Constipation: Improved with Colace b.i.d. as well as MiraLAX powder daily. At times, she has taken MiraLAX twice daily. She will continue on her current bowel regimen and will notify us if this worsens. Also discussed that she needs to stay well hydrated in order to help bowel function. She has not had any diarrhea. 3. Neutropenia: Improved with a total WBC today at nearly 7000. We reviewed general precautions. She is aware to notify us for any infection-type symptoms or temperature of 100.5 degrees Fahrenheit or greater. 4. CMP today is within normal limits with the exception of a mildly elevated glucose; she ate prior to lab draw today. 5. Endocrine/hair loss. We had a long discussion regarding potential side effects and how common it is to lose both hair on the head as well as eyebrows and eyelashes. She is aware that she needs to refrain from any kind of prescription eyelash or eyebrow strengtheners as she is still on chemotherapy. Informed patient that this will grow back once she is off cytotoxic systemic chemotherapy. 6. Stomatitis: Patient will continue with aloe juice and having not yet tried baking soda gargles and will try that as well. She can alternate between the two. It is improved compared to last week, but she will notify us if this worsens at all. 7. We reviewed diet and nutrition in general today per her request. 8. Headaches: Patient reports that she has had some short-lived intermittent daily headaches since initiating chemotherapy. These do respond well to the occasional Tylenol, and I have encouraged patient to use that. These are not migrainous-type headaches, and there is no associated neurological symptoms, to including no nausea, vomiting, photosensitivity, or photophobia. Again, will continue to monitor this. 9. Sexual health: Patient had questions today regarding general sexual safety. She had question regarding condom use. Patient is and was uncertain if she and her needed to use condoms daily throughout the entirety of chemotherapy, or if this was only necessary 48 hours post chemotherapy. Instructed patient that utilizing of prophylactics is encouraged on systemic chemotherapy and can be used for 48 to 72 hours post chemotherapy. Afterwards, it is up to the patient's discretion if she wants to continue using prophylactics, but again, she is and is not at reproductive age. We did discuss that condoms are the only means of preventing sexually transmitted diseases/sexually transmitted infections other than abstinence. Patient and her both verbalized understanding, and I believe all of their questions were answered to their satisfaction. 10. Patient will return to clinic next week for followup, labs as scheduled, and for initiation of Cycle #2 with Taxotere and Cytoxan, followed by Amarjit. OVIDIO
[2018-12-06 11:01] VITALS: BP 133/76
[2018-12-06 11:22] LABS: PLATELET COUNT, AUTOMATED 272 K/uL (150-450)
[2018-12-06] MEDS: PALONOSETRON 0.25 MG/5 ML VIAL IVP PRN (11:53)
[2018-12-06] MEDS: NS(*) 0.9% 500 ML BAG 500 ML IV PRN (11:53)
[2018-12-06 15:08] VITALS: BP 127/70
--- NOTE | 2018-12-06 15:13 | ONCOLOGY FOLLOW UP NOTE ---
EVENT DATE: December 06, 2018 DIAGNOSIS Left breast cancer, BRCA1 and 2 negative. CHIEF COMPLAINT Patient is here today for ongoing followup for her breast cancer. She is here for consideration of Cycle #2 with TC. HISTORY OF PRESENT ILLNESS Patient is a 68-year-old female who initiated Taxotere and Cytoxan with Neulasta support on 11/15/18. She has completed one cycle thus far and is here for consideration of initiation of Cycle #2 today. She had a PICC line placed in the left AC, which she is tolerating well. She feels that she has overall healed well from her left lumpectomy. She has been awaiting BRCA results, which we just received earlier this week. She is BRCA1 and 2 negative. When seen for followup post Cycle #1, she was noted to have some stomatitis as well as constipation and a grade 1 rash noted to her inner thumb and forefinger bilaterally, which was very consistent with a Taxotere-induced rash. I saw her for a followup after that, and this had improved after using topical hydrocortisone cream alternating with Benadryl OTC topical cream. Her constipation also improved as she remains on a bowel regimen with docusate one capsule b.i.d. as well as MiraLAX powder one capful daily. She remains on this bowel regimen today. For her stomatitis, we recommended baking soda/warm water gargles alternating with aloe juice gargles. Her stomatitis has also significantly improved per her report today. Her energy level is good. She has had some hair thinning, in particular in the eyebrows and eyelashes. She does report a history of dry eye syndrome. PAST MEDICAL HISTORY 1. Left breast cancer September 2018. 2. Psoriatic arthritis. 3. Scoliosis. 4. Hyperlipidemia. 5. Depression. 6. Dry eye syndrome, per patient. She is on Restasis and follows up with Dr. Oliver in [place], [place]. PAST SURGICAL HISTORY 1. Breast augmentation 1992. 2. Left kidney donation. 3. Left foot surgery times two. 4. Esophageal dilatation. 5. Total abdominal hysterectomy. 6. BSO. 7. Left knee replacement times four. 8. Left lumpectomy October 18, 2018. FAMILY HISTORY Mother had ovarian cancer at age 46. Maternal great aunt had breast cancer at unknown age. Maternal first cousin had breast cancer at 46. SOCIAL HISTORY Patient is . They have two grown sons. She is retired. She is a never smoker. She denies abuse of alcohol or illicit drugs. MEDICATIONS 1. Docusate sodium 100 mg b.i.d. 2. Wellbutrin SR 150 mg b.i.d. 3. Citalopram 40 mg daily. 4. Ranitidine 150 mg b.i.d. 5. Krill oil. 6. Vitamin B12. 7. Atorvastatin 40 mg daily. 8. Aspirin 81 mg daily. 9. Vitamin D3 5000 International Units daily. 10. Biotene. 11. Otezla 30 mg b.i.d. 12. MiraLAX powder one capful daily. ALLERGIES SULFA which causes rash and CODEINE which causes vomiting. REVIEW OF SYSTEMS CONSTITUTIONAL: Patient denies any recent fevers, chills, night sweats, or infections. She reports a good appetite. She is overall feeling quite well. EYES: Patient has reported a history of chronic dry eye syndrome and is on prescription eye drops to include Restasis. She has not had a followup with her eyedotter in some time. She has had some tearing of the eye in the past, and patient tells me that she's noticed some tearing but hasn't really paid attention to it. ENT, MOUTH: Patient had general stomatitis after Cycle #1, which improved. No dysphagia or odynophagia. She has had some dysgeusia. GASTROINTESTINAL: No nausea or vomiting at all. She has had some constipation, which has improved. She remains on her bowel regimen with Colace b.i.d. and MiraLAX powder. NEUROLOGIC: She has had occasional headaches after Cycle #1, but none recently. These have not lasted very long in the past and did not have any associated neurological deficits. This includes no photosensitivity, photophobia, nausea, or vomiting. She denies any numbness or tingling. PSYCHIATRIC: She denies any severe depression, anxiety, suicidal or homicidal ideation. DERM: Patient did have a mild rash noted to hands bilaterally today. She tells that this has significantly improved. She cannot really notice any red areas and tells me that her hands mostly are dry. She is using moisturizing lotion daily and at night. ENDOCRINE: Patient has noted some thinning of the hair in her eyebrows and eyelashes. The remainder of a 12-point review of systems was performed today and is otherwise unremarkable. PHYSICAL EXAMINATION VITAL SIGNS: Weight 66.9 kg, stable compared to last visit. T 97.7 F, P 98, R 18, BP 133/76, oxygen saturation 95% on room air. GENERAL: This is a pleasant 68-year-old woman who appears well nourished, well hydrated, and is in no acute distress. Her is with her chairside. HEAD: Atraumatic. No sinus tenderness to palpation. EYES: Sclerae anicteric. On exam today, I do see that patient has an increase in epiphora. This is noted bilaterally. MOUTH: Moist mucous membranes. She has some mild stomatitis, which has improved compared to last visit. Pharynx is still mildly erythematous, but improved compared to last visit. No plaques or exudate. No suspicious ulcerations or lesions. Moist mucous membranes. Pharynx is nonerythematous. No plaques or exudate. No suspicious ulcerations or lesions. NECK: Supple. No cervical or supraclavicular lymphadenopathy. LUNGS: Clear to auscultation and percussion bilaterally. HEART: Mildly tachycardic today, normal rhythm. No ectopy. NEUROLOGIC: Patient is awake, alert, and oriented x3. No focal motor or sensory deficits. PSYCHIATRIC: Mood and affect appear normal. DERM: Patient has decreased dryness noted to her hands bilaterally. Previous grade 1 rash in between her thumb and forefinger bilaterally has largely improved. It is dry, and there is no erythema. No pus or discharge. EXTREMITIES: No edema. No cyanosis or clubbing. LABORATORY CBC today: WBC 15.0, consistent with corticosteroid use, ANC 13.4, hemoglobin 14.6, hematocrit 42.2%, platelet count 272,000. Again, left shift consistent with dexamethasone. CMP today: Sodium normal, 139, potassium normal, 4.1, serum creatinine normal, 0.90, calcium normal, 9.9, total bili normal, 0.4, AST normal, 27, ALT normal, 12, alkaline phosphatase normal, 108, total protein normal, 7.2, and random glucose mildly elevated, 146. IMPRESSION AND PLAN Patient is a 68-year old female who presented with a palpable mass in her left breast. Mammogram and ultrasound on October 14, 2018, showed a large, irregular, spiculated mass, 4.5 cm, at 11 o'clock to 12 o'clock position. She underwent left lumpectomy and sentinel lymph node biopsy on October 18, 2018. Pathology was positive for a 2.7 cm invasive, poorly differentiated ductal carcinoma with two of four sentinel lymph nodes positive, one with micrometastasis. The medial margin was positive initially but negative after re-excision. ER positive 92%, CO positive 74.9%, HER2/jair negative for FISH, Ki-67 of 10.8%. Oncotype DX testing showed a recurrent score of 17 with a risk of distant disease recurrence at 15% on Tamoxifen alone. She initiated Taxotere and Cytoxan, followed by Neulasta on November 15, 2018. She is here for Cycle #2. She had grade 1 stomatitis, a grade 1 Taxotere-induced rash on her hands, as well as constipation noted after her first cycle. 1. Breast cancer: Appropriate labs were checked today as noted above. She does have a leukocytosis with positive left shift, again all consistent with dexamethasone which we give as a premedication to take day before, day of, and day after Taxotere. She is afebrile, does not have any signs of infection. 2. Chemotherapy: Patient will proceed with Cycle #2 with Taxotere and cyclophosphamide (TC) today as well as Neulasta. 3. Constipation: Discussed bowel regimen. She will continue on Colace b.i.d. as well as MiraLAX powder one capful daily. This is working well for her. 4. We did review neutropenic precautions in general today. 5. Stomatitis: Patient will continue to alternate with aloe juice rinses and baking soda gargles. This did improve her symptoms. 6. Headaches: Largely resolved. Will continue to monitor this. 7. Epiphora: Patient does have increased eye tearing today noted bilaterally. She does have a history of some dry eye syndrome and has not followed up with Dr. Oliver in [place], [place], her eyedotter, in some time. Patient was not able to really tell if this was worse, though in seeing her in clinic over the last few weeks, this does appear increased to me and is now bilateral. As such, I have instructed the patient to call Dr. Oliver and make a followup visit to assess for any epiphora which may require stenting. I did explain to the patient and her that epiphora is related to Taxotere, and we would like to get ahead of this. She verbalized agreement. 8. We will await results from her followup with Dr. Oliver, and we will re- evaluate this. Currently, no plan to dose-reduce Taxotere but will continue to monitor for potential need. 9. Patient will return to clinic next week for labs as scheduled, as well as followup visit with me for toxicity check after her second cycle. MTDD
[2018-12-13 13:04] LABS: PLATELET COUNT, AUTOMATED 184 K/uL (150-450)
[2018-12-13 13:22] VITALS: BP 93/58
[2018-12-13 15:24] VITALS: BP 121/79
--- NOTE | 2018-12-14 19:46 | ONCOLOGY FOLLOW UP NOTE ---
EVENT DATE: December 13, 2018 DIAGNOSIS Left breast cancer, BRCA1 and 2 negative. CHIEF COMPLAINT Patient is here today for ongoing followup regarding her breast cancer. She is status post Cycle #2 with TC, followed by Neulasta, given one week ago. HISTORY OF PRESENT ILLNESS Patient is a 68-year-old female who initiated Taxotere and Cytoxan with Neulasta support on 11/15/18. She has now completed two cycles with Cycle #2 given one week ago. She has a PICC line in the left AC, which she is tolerating well. There has been no difficulty or issues with the PICC line. She feels that she has overall healed well from her left breast lumpectomy. She is BRAC1 and 2 negative, as noted above. After Cycle #1, she was noted to have some stomatitis as well as constipation and a grade 1 rash noted to her inner thumb and forefinger bilaterally, which was very consistent with a Taxotere-induced rash. When seen for followup after her first cycle, it was noted that her rash had improved after she used some topical hydrocortisone cream alternating with Benadryl OTC. Her stomatitis had also improved using [id number] measures with baking soda/warm water gargles as well as aloe juice rinses. Her constipation has been under good control with a bowel regimen consisting of Colace b.i.d. and MiraLAX powder one capful daily. She remains on this bowel regimen. She does still have some stomatitis and tells me that her mouth is generally dry, and her lips are becoming dry and chapped as well, but she has not noticed any ulcerations. She does have significant dysgeusia which is making drinking even plain water difficult for her. She and her report that she has had a decreased appetite over the last week. She denies any dysphagia or odynophagia associated with her stomatitis, but does feel that this makes her salivate a bit more. Today, she believes that her rash on her hands is somewhat worse. It is not necessarily more pruritic, but it is more red and actually feels as though it is burning on the sides of her index fingers. She has had alopecia, is currently wearing a wig, and has been noticing hair loss in the eyebrows and eyelashes. She also has a history of dry eye syndrome and has recently been noted to have some increased lacrimation bilaterally. This was questionable for possible a Taxotere-induced epiphora. At her last visit, she was instructed to follow up with her personal loan specialist, whom she had not seen for a while, but did see in the past for her history of dry eye. She saw Dr. Oliver in [place] and tells me that no blockage was noted in her tear ducts, but he did recommend that she increase her [id number] lubricant eye drops. She feels fatigued today. Her tells me that he noticed her sleeping a bit more over the last few days and was generally sluggish. He believes that as a result of her fatigue, she's been drinking less fluids and is also eating less. Patient also reports that she has felt a bit off balance, but also reports that she has a history of difficulty with balance secondary to her history of tinnitus. She reports her fatigue has increased. Lastly, she reports some possible vaginal lesions. She states that there has not been any drainage and no discharge, but reports that her genitals basically feel sore and tender. She is applying Vaseline topically. She denies any history of herpes or other. PAST MEDICAL HISTORY 1. Left breast cancer September 2018. 2. Psoriatic arthritis. 3. Scoliosis. 4. Hyperlipidemia. 5. Depression. 6. Dry eye syndrome, per patient. She is on Restasis and follows up with Dr. Oliver in [place], [place]. PAST SURGICAL HISTORY 1. Breast augmentation 1992. 2. Left kidney donation. 3. Left foot surgery times two. 4. Esophageal dilatation. 5. Total abdominal hysterectomy. 6. BSO. 7. Left knee replacement times four. 8. Left lumpectomy October 18, 2018. FAMILY HISTORY Mother had ovarian cancer at age 46. Maternal great aunt had breast cancer at unknown age. Maternal first cousin had breast cancer at 46. SOCIAL HISTORY Patient is . They have two grown sons. She is retired. She is a never smoker. She denies abuse of alcohol or illicit drugs. MEDICATIONS 1. Docusate sodium 100 mg b.i.d. 2. Wellbutrin SR 150 mg b.i.d. 3. Citalopram 40 mg daily. 4. Ranitidine 150 mg b.i.d. 5. Krill oil. 6. Vitamin B12. 7. Atorvastatin 40 mg daily. 8. Aspirin 81 mg daily. 9. Vitamin D3 5000 International Units daily. 10. Biotene. 11. Otezla 30 mg b.i.d. 12. MiraLAX powder one capful daily. ALLERGIES SULFA which causes rash and CODEINE which causes vomiting. REVIEW OF SYSTEMS CONSTITUTIONAL: Patient denies any recent fevers, chills, night sweats, or infections. She reports somewhat of a decreased appetite as well as decreased oral intake over the last few days. She reports increasing fatigue. Otherwise, she is feeling stable. EYES: Patient has reported a history of chronic dry eye syndrome and is using Restasis drops. She just recently saw her personal loan specialist and was instructed to increase her eye drops. She has had some increased lacrimation bilaterally, but tells me this is stable compared to last week. No pain. ENT, MOUTH: Patient has had general stomatitis since after Cycle #1. This has generally improved with home remedies of baking soda gargles and aloe juice rinses. This may be somewhat worse today, per patient. She denies any visible ulcerations. She denies any dysphagia or odynophagia associated with this. Her lips have become somewhat chapped and dry along with her stomatitis, and she reports some general mouth soreness and general dysgeusia. Patient reports a history of tinnitus and a history of general poor balance as a result. She believes this has worsened over the last few days related to her fatigue. GASTROINTESTINAL: No abdominal pain. No nausea or vomiting with the exception of a couple of episodes of queasiness over the last week. She did have to use her home antiemetics on a couple of occasions. She thinks she may have a little nausea today, but no emesis. She has had constipation, but is on a bowel regimen with daily Colace b.i.d. and MiraLAX powder daily. Her appetite and oral intake are down compared to last week. NEUROLOGIC: She had some occasional headaches after Cycle #1, but none recently. These did not last long and did not have any associated neurological deficits. This includes no photosensitivity, photophobia, nausea, or vomiting. She denies any numbness or tingling. She does report a mild burning sensation to the lateral aspect of her index fingers bilaterally. This became noticeable as her Taxotere rash on her hands became more erythematous over the last week. PSYCHIATRIC: She denies any severe depression, anxiety, suicidal or homicidal ideation. DERM: Patient does have a rash noted to hands bilaterally in between her index finger and thumb. This has waxed and waned since initiating treatment. The patient believes this has recently worsened as this has become more reddened and blocker and sewer. She also has some mild burning on the sides of her index fingers. She is using moisturizing lotion daily and at night. ENDOCRINE: Patient has worsening fatigue. This has interfered with her oral intake. She has also had alopecia as well as thinning of the eyebrows and eyelashes. She is using a wig. She denies any heat or cold intolerance. EXTREMITIES: She denies any edema. MUSCULOSKELETAL: Patient reports some increased arthralgias and bony-type pains, which she noticed approximately two to three days after chemotherapy. She reports feeling pain in her hips bilaterally as well as occasional back spasms. The remainder of a 12-point review of systems was performed today and is otherwise negative. PHYSICAL EXAMINATION VITAL SIGNS: Weight 150 pounds, up 3 pounds. T 97.0 degrees Fahrenheit, P 76, respirations 16, BP 93/58, oxygen saturation 96% room air. GENERAL: This is a pleasant 68-year-old woman who appears somewhat fatigued, somewhat volume contracted as well, but is in no acute distress. Her is with her at the bedside. HEAD: Atraumatic. Normocephalic. EYES: Sclerae anicteric. Patient does have bilateral epiphora noted, at baseline compared to last week's exam. ENT, MOUTH: Somewhat dry mucous membranes. She does have stomatitis, grade 1/2. There are some raised areas on the posterior tongue, but no obvious patches or plaque formations. This does appear to be perhaps the beginning of thrush, though there are no plaques or exudate. Pharynx is still mildly erythematous. No other suspicious ulcerations or lesions. NECK: Supple. No cervical or supraclavicular lymphadenopathy. LUNGS: Clear breath sounds to auscultation bilaterally. Chest expansion is symmetrical. Respiratory effort is normal. HEART: Regular rate and rhythm. No ectopy. NEUROLOGIC: Patient is awake, alert, and oriented x3. No focal motor or sensory deficits. PSYCHIATRIC: Mood and affect are appropriate today. DERM: Patient has a grade 2 erythematous rash noted to her hands bilaterally. Previously, this was up to a grade 1 rash and was noticeable only in between her thumb and forefinger bilaterally, though on today's exam, the area has spread out to the anterior fingers bilaterally. Her hands do have some general dryness as well. There is no cracking or peeling or desquamation. No pus or drainage. EXTREMITIES: No edema. No cyanosis or clubbing. MUSCULOSKELETAL: No focal complaints of pain. No pain to palpation of bony spinous processes. Gait is minimally unstable, though I suspect this is related to dehydration. LABORATORY CBC today: WBC 14.5, ANC 22, hemoglobin 12.8, hematocrit 37.3%, platelets 184,000. CMP today: Sodium minimally low today at 134, potassium normal at 3.9, serum creatinine normal, 0.90, random glucose mildly elevated at 126, calcium normal, 9.1, total bilirubin normal, 0.3, AST normal, 26, ALT normal, 23, alkaline phosphatase normal, 105, total protein normal at 6.3. CA27.29 on 12/06/2018: Normal and decreased down to 17.5. Previously, this was 20.6 on 11/29/18. IMAGING Bone densitometry/DEXA scan at [facility] on 10/17/2017: 1. Lumbar spine: Osteopenia. There has been a 13.1% decrease in the bone mineral density since the previous exam. 2. Left total hip: Osteopenia. There has been a 25.6% decrease in the bone mineral density since the previous exam. 3. Femoral neck: Bone mineral density is 0.793 g/cm. The next DEXA scan of this patient should include the following sites: L1 to L4 and the left hip. IMPRESSION AND PLAN Patient is a 68-year old female who presented with a palpable mass in her left breast. Mammogram and ultrasound on October 14, 2018, showed a large, irregular, spiculated mass, 4.5 cm, at 11 o'clock to 12 o'clock position. She underwent left lumpectomy and sentinel lymph node biopsy on October 18, 2018. Pathology was positive for a 2.7 cm invasive, poorly differentiated ductal carcinoma with two of four sentinel lymph nodes positive, one with micrometastasis. The medial margin was positive initially but negative after re-excision. ER positive 92%, TN positive 74.9%, HER2/jair negative for FISH, Ki-67 of 10.8%. Oncotype DX testing showed a recurrent score of 17 with a risk of distant disease recurrence at 15% on Tamoxifen alone. She initiated Taxotere and Cytoxan, followed by Neulasta on November 15, 2018. She has now completed two cycles. She had grade 1 stomatitis and a grade 1 Taxotere-induced rash on her hands bilaterally, as well as grade 1 constipation noted after her first cycle. All of these symptoms later improved, though she has had some general stomatitis on and off. The rash at her last visit had nearly completely resolved. Today, she does have noticeable increased fatigue and weakness, as well as some hypotension, which I suspect is largely related to volume contraction. She is having some dysgeusia which is interfering with appetite and drinking water. She did notice some arthralgias after her second cycle last week, which I suspect is related to growth factor with Neulasta. This as not severe enough to necessitate any medications, to include no [id number] medications, but was noticeable for the patient. 1. Breast cancer: Appropriate labs have been checked today. She is status post Cycle #2 with Taxotere and cyclophosphamide (TC) given last week. 2. Constipation: Patient remains on her bowel regimen, which is working well for her. She will continue on Colace b.i.d. as well as MiraLAX powder one capful daily. 3. Labs today: CBC is in good range, neutrophils are normal, but we did review general precautions again today. Her chemistry panel did reveal a mildly low sodium, again likely suspected to volume contraction. 4. Stomatitis: Slightly worsened today. She may have some esophagitis and may have some early symptoms consistent with oral michael. For this, I have given her a written prescription for nystatin swish and swallow solution 100,000 units/mL, with instructions to take 4 to 6 mL every six hours swish and swallow p.r.n., #120 mL, no refills. I have given her instructions on how to use this. She may continue to use warm water and baking soda gargles and rinses as needed. She will notify us if this does not improve her symptoms. 5. Headaches: Resolved. Will continue to monitor. 6. Arthralgias, likely growth-factor related: Discussed this at length with patient and her today. I have instructed her to start daily Claritin OTC 10 mg daily for help with her arthralgias. She may add Tylenol or ibuprofen times one for just a couple of days following each cycle. She will notify us if this worsens or becomes intolerable. There was no radiating pain that she noticed in her hips or back. 7. Epiphora: Patient has had increased lacrimation bilaterally noted. She has a history of dry eye syndrome. She follows up with Dr. Oliver in [place], [place]. She was seen approximately one week ago and tells me that there was no blockage and no need for stent placement. I do not have all of these records yet. She will continue to follow up with her personal loan specialist and will continue with their instructions for eye drops and other measures. We will continue to monitor this as we do not want this to worsen related to Taxotere. She verbalized understanding. 8. Rash: Worse on exam today, now grade 2. Mostly this has spread from her inner forefinger and thumb over nearly each of her digits bilaterally. There are no worsening macules or papules, but the digits are much more erythematous today. The skin is dry. She is also having some mild burning sensations to the index fingers. For this, I have given her a handwritten prescription to start low-dose prednisone, 10 mg daily x3 days. She will then stop this per instructions. We will see if this helps her symptoms. We will re-evaluate this next week, and I will discuss potential dose modification with Dr. Millan if needed. We would of course like to treat her at full-dose in she can tolerate this, as we are treating her in the adjuvant setting. Patient was instructed that she will still need to use her dexamethasone the day before, day of, and day after each cycle of chemotherapy. 9. Dehydration/volume contraction/fatigue: Noticeable today on exam, evidence by hypotension. Sodium is minimally low on CMP today. For this, we will hydrate her with 1 L of normal saline intravenously, as well as administer dexamethasone 8 mg to help with nausea and fatigue. 10. Patient will return to clinic in one week for followup and re-evaluation. 11. Patient will continue on her current Taxotere schedule and will be due for Cycle #3 in two weeks. ADDENDUM I was able to see the patient shortly before she was discharged from clinic today. She did report feeling noticeably improved half way through IV fluid hydration and medications. OVIDIO
[2018-12-20 13:03] LABS: PLATELET COUNT, AUTOMATED 142 K/uL (150-450)
--- NOTE | 2018-12-22 21:00 | ONCOLOGY FOLLOW UP NOTE ---
EVENT DATE: December 20, 2018 DIAGNOSIS Left breast cancer, BRCA1 and 2 negative. CHIEF COMPLAINT Patient is here today for ongoing followup regarding her breast cancer. She is status post Cycle #2 with TC, followed by Neulasta, given two weeks ago. HISTORY OF PRESENT ILLNESS Patient is a 68-year-old female who initiated Taxotere and Cytoxan with Neulasta support on 11/15/18. She has now completed two cycles with Cycle #2 given one week ago. She has a PICC line in the left AC, which she is tolerating well. There has been no difficulty or issues with the PICC line. She feels that she has overall healed well from her left breast lumpectomy. She is BRAC1 and 2 negative, as noted above. After Cycle #1, she was noted to have some stomatitis as well as constipation and a grade 1 rash noted to her inner thumb and forefinger bilaterally, which was very consistent with a Taxotere-induced rash. When seen for followup after her first cycle, it was noted that her rash had improved after she used some topical hydrocortisone cream alternating with Benadryl OTC. Her stomatitis had also improved using rdeu-sdb-bvsftxr measures with baking soda/warm water gargles as well as aloe juice rinses. Her constipation has been under good control with a bowel regimen consisting of Colace b.i.d. and MiraLAX powder one capful daily. She remains on this bowel regimen. She states she has had some difficulty with stomatitis and generalized xerostomia. Her lips becomes dry and chapped. She may have had the beginnings of oral michael last week, and she was given a prescription for nystatin swish and swallow, which she has now completed. She does believe that this helps some. She has had some significant dysgeusia, which makes drinking even plain water difficult for her. She has not had any significant dysphagia or odynophagia associated with her stomatitis, but does state that this tends to make her salivate a bit more. She has also had a grade 1 Taxotere-induced rash, most noticeable in between her forefinger and thumb bilaterally. This has waxed and waned since starting treatment. It was initially erythematous and itchy, then resolved, and then flared again. She did initiate a short course of daily prednisone for her rash, which was worse last week, and she has now completed prednisone. She tells me that her hands have improved, the burning and pain sensation has nearly resolved, though she has noticed some peeling of her skin on her fingers bilaterally. Erythema has resolved. It is not pruritic. She has had alopecia. She also has a history of dry eye syndrome and has recently noticed increased lacrimation bilaterally. This was questionable for possible Taxotere-induced epiphora, but she's now followed up with Dr. Oliver in [place] and reports that per his evaluation, there was no blockage in her tear ducts. She was recommended to increase her opeo-vlb-eljqixx lubricant eye drops. She did require IV fluid hydration last week secondary to grade 2 fatigue, but tells me that today her energy is much improved. She believes she is eating and drinking better, and her agrees. She is noticing some general nasal dryness and believes she may have a sore in her nostrils bilaterally, but there has been no bleeding or epistaxis. She is using nasal rinses with a Neti Pot daily. Lastly, she does report that she has been feeling stressed out and a bit short tempered at home with her . Apparently, Lee Ann's father only two days ago. She is still grieving. She tells me his was expected, and her father was 92 and lived a good life. She is accompanied in the office today by her . PAST MEDICAL HISTORY 1. Left breast cancer September 2018. 2. Psoriatic arthritis. 3. Scoliosis. 4. Hyperlipidemia. 5. Depression. 6. Dry eye syndrome, per patient. She is on Restasis and follows up with Dr. Oliver in [place], [place]. PAST SURGICAL HISTORY 1. Breast augmentation 1992. 2. Left kidney donation. 3. Left foot surgery times two. 4. Esophageal dilatation. 5. Total abdominal hysterectomy. 6. BSO. 7. Left knee replacement times four. 8. Left lumpectomy October 18, 2018. FAMILY HISTORY Mother had ovarian cancer at age 46. Maternal great aunt had breast cancer at unknown age. Maternal first cousin had breast cancer at 46. SOCIAL HISTORY Patient is . They have two grown sons. She is retired. She is a never smoker. She denies abuse of alcohol or illicit drugs. MEDICATIONS 1. Docusate sodium 100 mg b.i.d. 2. Wellbutrin SR 150 mg b.i.d. 3. Citalopram 40 mg daily. 4. Ranitidine 150 mg b.i.d. 5. Krill oil. 6. Vitamin B12. 7. Atorvastatin 40 mg daily. 8. Aspirin 81 mg daily. 9. Vitamin D3 5000 International Units daily. 10. Biotene. 11. Otezla 30 mg b.i.d. 12. MiraLAX powder one capful daily. ALLERGIES SULFA which causes rash and CODEINE which causes vomiting. REVIEW OF SYSTEMS CONSTITUTIONAL: Patient denies any recent fevers, chills, or night sweats. No recent infections. Her appetite and oral intake have improved over the last week. She has some fatigue, but this has also improved. EYES: She has a history of chronic dry eye syndrome. She is using Restasis drops. She recently saw her realty loan specialist. She has had some increased lacrimation bilaterally, but this is stable compared to last week. Apparently, no obstruction was noted in her tear ducts bilaterally. HENT: Patient has had general stomatitis since initiating Cycle #1. This was slightly worse after our visit last week. She did recently complete a prescription with nystatin swish and swallow. She does not have any visible mouth sores. She does have some dysgeusia. She also has some dry mucous membranes in her nose. No epistaxis. GASTROINTESTINAL: No abdominal pain. No recent nausea or vomiting. She has used her home antiemetics in the past, but has not used this recently in the last week. She has had constipation, currently manageable on a bowel regimen with daily Colace b.i.d. and MiraLAX powder daily. Appetite and oral intake are improved compared to last week when she needed IV fluids. NEUROLOGIC: She had some occasional headaches after Cycle #1, but none in the last couple of weeks. There were no associated neurological deficits. She denies any numbness or tingling. She does have a mild burning sensation to the lateral aspect of her index fingers bilaterally, likely related to her Taxotere- induced rash. PSYCHIATRIC: Patient recently lost her father. She is tearful when talking about him. She denies any severe depression, anxiety, suicidal or homicidal ideation. DERM: Patient has a rash noted to her hands bilaterally in between her index finger and thumb which seems to be related to Taxotere. This has waxed and waned since initiating treatment. This improved after a short course of oral prednisone last week. She now only notices some peeling of the skin on her fingers bilaterally. She is using moisturizing lotion daily and at night. ENDOCRINE: Patient has some generalized fatigue and generalized weakness, but reports that these have improved in the last week. She also has experienced alopecia as well as thinning of the eyebrows and eyelashes. She is using a wig. EXTREMITIES: She denies any edema. MUSCULOSKELETAL: Her arthralgias and bony-type pains which she noticed approximately two to three days after chemotherapy have improved over the last week. She has not had any further back spasms or pain in her hips bilaterally. The remainder of a 12-point review of systems was performed today and is otherwise negative. PHYSICAL EXAMINATION VITAL SIGNS: No weight today. Temperature 98.6 degrees Fahrenheit, P 115, then decreased down to 96, respirations 16, BP 103/79, oxygen saturation 95% room air. GENERAL: In general, this is a pleasant 68-year-old woman who appears well hydrated, well nourished, and is in no acute distress. Her is with her at the chairside. HEAD: Atraumatic. Normocephalic. EYES: Sclerae anicteric. Patient does have bilateral epiphora noted, at baseline compared to last week's exam. ENT, MOUTH: Somewhat dry mucous membranes. She has some stomatitis, currently grade 1. There are no visible ulcerations noted. There is no plaque formation. Pharynx is only mildly erythematous. NECK: Supple. No cervical or supraclavicular lymphadenopathy. LUNGS: Clear breath sounds to auscultation bilaterally. Chest expansion is symmetrical. Respiratory effort is normal. HEART: Tachycardic, regular rate. This then decreased after our exam today to the upper 90s. No murmur. No gallops or rubs. NEUROLOGIC: Patient is awake, alert, and oriented times three. No focal motor or sensory deficits. PSYCHIATRIC: Mood and affect are appropriate today. Patient became tearful when discussing her recently father, and appears to be appropriately grieving. DERM: Patient has a grade 1 rash noted to her hands bilaterally in between her index finger and thumb. There is no longer any erythema. There is some general dryness. There is some peeling bilaterally on each of her digits, but there is no pus or drainage. No pustules. No signs of infection. EXTREMITIES: No edema. No cyanosis or clubbing. MUSCULOSKELETAL: No focal complaints of pain. No pain to palpation of bony spinous processes. Gait is stable. LABORATORY CBC today: WBC 11.0, hemoglobin 14.3, hematocrit 41.7%, platelets 142,000. CMP today: Sodium improved up to 136, minimally low, potassium normal at 4.4, glucose improved at 119, serum creatinine normal at 1.0, calcium normal, 9.3, total bili 0.5, AST 34, ALT 17, alkaline phosphatase 113, total protein 6.7, albumin 4.2. IMAGING Bone densitometry/DEXA scan at [facility] on 10/17/2017: 1. Lumbar spine: Osteopenia. There has been a 13.1% decrease in the bone mineral density since the previous exam. 2. Left total hip: Osteopenia. There has been a 25.6% decrease in the bone mineral density since the previous exam. 3. Femoral neck: Bone mineral density is 0.793 g/cm. The next DEXA scan of this patient should include the following sites: L1 to L4 and the left hip. IMPRESSION AND PLAN Patient is a 68-year old female who presented with a palpable mass in her left breast. Mammogram and ultrasound on October 14, 2018, showed a large, irregular, spiculated mass, 4.5 cm, at 11 o'clock to 12 o'clock position. She underwent left lumpectomy and sentinel lymph node biopsy on October 18, 2018. Pathology was positive for a 2.7 cm invasive, poorly differentiated ductal carcinoma with two of four sentinel lymph nodes positive, one with micrometastasis. The medial margin was positive initially but negative after re-excision. ER positive 92%, ME positive 74.9%, HER2/jair negative for FISH, Ki-67 of 10.8%. Oncotype DX testing showed a recurrent score of 17 with a risk of distant disease recurrence at 15% on Tamoxifen alone. She initiated Taxotere and Cytoxan, followed by Neulasta on November 15, 2018. She has now completed two cycles. She will be due for her third cycle next week. She has had grade 1/2 stomatitis and a grade 1/2 Taxotere-induced rash on her hands bilaterally, as well as grade 1 constipation after her first cycle. All of these symptoms have improved, though she does still have some stomatitis. Her rash was worse last week, and she was given a short course of prednisone, which she has now completed. She was also volume contracted last week and did require some intravenous fluid hydration. She continues to have some dysgeusia, though her appetite and oral intake have improved. Her arthralgias have also improved, and this is likely related to growth factor with Neulasta. 1. Breast cancer: Appropriate labs have been checked today. CBC is within a good range. White count is elevated due to Neulasta. CMP revealed still a minimally low sodium, but improved to last week. Otherwise, CMP is normal. 2. Constipation: Patient is to remain on her current bowel regimen with Colace b.i.d. and MiraLAX once daily. 3. Stomatitis: Improved. She may have had some esophagitis last week and early oral michael and has now completed a course of nystatin swish and swallow. She will alert us if this worsens. She may continue to use baking soda and warm water gargles and rinses as needed. 4. Arthralgias, likely growth factor related: Currently resolved. She is to continue on Claritin 10 mg OTC daily. 5. Epiphora: Stable bilaterally. She has a history of dry eye syndrome. She recently followed up with Dr. Oliver in [place], [place]. Will continue to monitor this. 6. Rash: Now down to grade 1, previously grade 2. There is now only dryness of her hands noted bilaterally along with some peeling of the skin, but no erythema and no macules or papules. It is no longer painful. We will continue to monitor this. 7. I have recommended oqir-fem-hasxcud [place] Nasal Saline Gel to place in her nose for dry nasal passages. She is to continue with her other home remedies to include Neti Pot. 8. Patient will return to clinic next week for followup, repeat labs, and to initiate Cycle #3 with TCN-Neulasta. 9. She's now half way through treatment as we are planning on a total of four cycles. MTDD
[2018-12-27 11:13] VITALS: BP 111/76
[2018-12-27] MEDS: PALONOSETRON 0.25 MG/5 ML VIAL IVP PRN (11:58)
[2018-12-27] MEDS: NS(*) 0.9% 500 ML BAG 500 ML IV PRN (12:00)
[2018-12-27 14:58] VITALS: BP 124/74
--- NOTE | 2018-12-27 20:27 | EL-TARABILY ONCOLOGY NOTE ---
EVENT DATE: December 27, 2018 DIAGNOSIS Stage IIB (pT2 pN1a cM0) left breast invasive ductal carcinoma. CHIEF COMPLAINT Patient is here today for her third cycle of adjuvant chemotherapy with TC regimen with Taxotere and cyclophosphamide for her left breast cancer. ONCOLOGY HISTORY Patient is a 68-year old female who presented with palpable mass of her left breast. She had a screening mammogram on October 14, 2018, which showed large irregular spiculated mass, so the patient had ultrasound of the left breast the same day, which showed 4.5 cm large heterogenous solid mass at 11 to 12 o'clock position. Patient ended by having left breast lumpectomy and sentinel lymph node biopsy done on October 18, 2018, and the pathology came back positive for 2.7 cm invasive, poorly-differentiated ductal carcinoma, grade 3/3. Two out of four sentinel lymph nodes came back positive for metastasis, one with micrometastasis. The medial margin was positive initially and negative after re-excision. ER 92% positive, RI 74.9% positive, HER2/jair negative by FISH. Ki-67 was 10.8%. Oncotype DX testing showed recurrence score of 17 with distant recurrent risk at nine years 15% with no apparent benefit of chemotherapy. Patient started adjuvant chemotherapy with TC regimen with Taxotere and cyclophosphamide on the October. HISTORY OF PRESENT ILLNESS Patient is here today for her third cycle of TC regimen as adjuvant treatment for her left breast cancer. She is doing fine currently. She has increased tearing and blurry vision, and the patient saw an bass guitar teacher. After exam, she does not have any problem. She has occasional nasal bleed. She has also tinnitus in her ears. She has cough with clear phlegm and short winded sometimes. She has nausea for a few days after her chemotherapy, but no other gastrointestinal symptoms. She has pain in her hips and legs. She has headache and neuropathy in her fingers and toes. She is weak, tired, and fatigued, and she has dry skin. PAST MEDICAL HISTORY 1. Psoriatic arthritis. 2. Scoliosis. 3. Hypercholesterolemia. PAST SURGICAL HISTORY 1. Breast augmentation in 1992. 2. 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 3. She had two left foot surgeries. 4. She had esophageal dilatation. 5. Total abdominal hysterectomy. 6. Bilateral salpingo-oophorectomy done on separate occasions. FAMILY HISTORY Mother had ovarian cancer at age 47 years. Maternal aunts with breast cancer and maternal cousin with breast cancer in her 50s. SOCIAL HISTORY Patient is with two sons. 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 She is a never smoker. Denies any abuse of alcohol or illicit drugs. CURRENT MEDICATIONS 1. Docusate sodium 100 mg capsule twice a day. 2. Wellbutrin SR 150 mg twice a day. 3, Citalopram 40 mg daily. 4. Ranitidine 150 mg twice daily. 5. Krill Oil 500 mg daily. 6. Vitamin B12 1000 mcg tablet daily. 7. Atorvastatin 40 mg daily. 8. Aspirin 81 mg daily. 9. Magnesium Oxide 250 mg daily. 10. Vitamin D3 5000 units daily. 11. Biotene 10,000 mcg tablet daily. 12. Otezla 30 mg tablet twice daily. ALLERGIES SULFA which causes skin rash and CODEINE which causes vomiting. REVIEW OF SYSTEMS CONSTITUTIONAL: No appetite or weight change. No fever, chills, or sweating. No recent infection. HEENT: Ears: She has tinnitus. No hearing problem. Nose: No nasal discharge. She has occasional nasal bleeds. Throat: No sore throat or mouth ulcers. Eyes: She has increased tearing and blurry vision. RESPIRATORY: She has cough with clear phlegm and shortness of breath sometimes. CARDIOVASCULAR: No chest pain, orthopnea, or paroxysmal nocturnal dyspnea (PND). No edema. No palpitations. GASTROINTESTINAL: She has nausea for a few days after her chemotherapy. No vomiting. No diarrhea or constipation. No change in bowel movements. No heartburn or swallowing difficulties. No abdominal pain. No jaundice. No hematemesis, melena, or rectal bleeding. GENITOURINARY: No hematuria or dysuria. MUSCULOSKELETAL: She has pain in her hips and legs. NEUROLOGICAL: She has tingling and numbness in her fingers and toes. She has occasional headache. No convulsions. HEMATOLOGIC/LYMPHATIC: No bleeding or easy bruising. She is weak, tired, and fatigued. No enlarged lymph nodes. SKIN: No skin rash or lumps. She has dry skin. PSYCHIATRIC: No anxiety or depression. PHYSICAL EXAMINATION GENERAL: Looks stable. Well developed, well nourished, and in no acute distress. VITAL SIGNS: Blood pressure 111/76, pulse 99 per minute, respirations 16 per minute, temperature 98.3, pulse ox 94% on room air. HEENT: Head: Atraumatic. No sinus tenderness to palpation. Eyes: No icterus or conjunctivitis. Mouth and Throat: No oral thrush or mucositis. NECK: Supple. No cervical or supraclavicular lymphadenopathy. LUNGS: Clear to auscultation and percussion bilaterally. HEART: Regular rate and rhythm. No gallops, murmurs, clicks, or rubs. ABDOMEN: Soft and lax. No tenderness. No hepatosplenomegaly. No masses. EXTREMITIES: No cyanosis, clubbing, or edema. LYMPHATICS: No peripheral lymphadenopathy. NEUROLOGICAL: Conscious, alert, and oriented times three. No focal motor or sensory deficits. PSYCHIATRIC: Mood and affect appear normal. SKIN: No skin rash, bruise, or purpuric eruption. DIAGNOSTIC DATA CBC showed white count 11.1, hemoglobin 12.7, hematocrit 38.1, platelets 276,000. ANC is 9000. ALC is 1200. Chem panel totally normal except chloride 108. Last CA27.29 was normal at 17.5. ASSESSMENT 1. Stage IIB (pT2, pN1a, cM0) left breast invasive ductal carcinoma, status post lumpectomy and sentinel lymph node biopsy done October 18, 2018, for 2.7 cm invasive, poorly-differentiated ductal carcinoma, grade 3/3. Two out of four sentinel lymph nodes were positive for metastasis, one of them with micrometastatic disease. Her medial margin was positive initially, but negative after re-excision. ER 92% positive, RI 74.9% positive, HER2/jair negative by FISH. Ki-67 was 10.8%. Oncotype DX testing came with a recurrence score of 17 with distant or systemic recurrent risk at nine years of 15% with no apparent benefit of chemotherapy. Her pathology was suggestive of aggressive tumor with grade 3/3, and she had also two positive lymph nodes, and for this reason, patient started adjuvant chemotherapy with TC regimen with Taxotere and cyclophosphamide on the October. She completed two courses so far, and I am planning to proceed with her third course today. I am planning to give her four cycles of chemotherapy, to be followed by adjuvant radiation therapy, to be followed by adjuvant hormonal therapy as her tumor was ER/RI positive. I am planning to see her in three weeks from now prior to the last cycle of chemotherapy with CBC, chemistry panel, and CA27.29. Her current CA27.29 is normal at 17.5, and her level for today is pending. 2. Mild leukocytosis, could be due to rebound of her bone marrow after suppression with chemotherapy. PLAN 1. Chemotherapy with TC regimen cycle 3. 2. CBC, chem panel to be checked weekly. 3. Patient to return in three weeks with CBC, chem panel, and CA27.29. 4. Patient to contact us for any new concerns or complaints. MTDD
[2019-01-03 13:20] LABS: PLATELET COUNT, AUTOMATED 210 K/uL (150-450)
--- NOTE | 2019-01-05 11:20 | ONCOLOGY FOLLOW UP NOTE ---
EVENT DATE: January 03, 2019 DIAGNOSIS Left breast cancer, BRCA1 and 2 negative. CHIEF COMPLAINT Patient is here today for ongoing followup regarding her breast cancer. She is status post Cycle #3 with TC, followed by Alfredolasta, given one week ago. She is here for ongoing followup. HISTORY OF PRESENT ILLNESS Patient is a 68-year-old female who initiated Taxotere and Cytoxan with Neulasta support on 11/15/18. She has now completed two cycles with Cycle #2 given one week ago. She has a PICC line in the left AC, which she is tolerating well. There has been no difficulty or issues with the PICC line. She feels that she has overall healed well from her left breast lumpectomy. She is BRAC1 and 2 negative, as noted above. After Cycle #1, she was noted to have some stomatitis as well as constipation and a grade 1 rash noted to her inner thumb and forefinger bilaterally, which was very consistent with a Taxotere-induced rash. When seen for followup after her first cycle, it was noted that her rash had improved after she used some topical hydrocortisone cream alternating with Benadryl OTC. Her stomatitis had also improved using [id number] measures with baking soda/warm water gargles as well as aloe juice rinses. Her constipation has been under good control with a bowel regimen consisting of Colace b.i.d. and MiraLAX powder one capful daily. She remains on this bowel regimen. She states she has had some difficulty with stomatitis and generalized xerostomia. Her lips becomes dry and chapped. She may have had the beginnings of oral michael last week, and she was given a prescription for nystatin swish and swallow, which she has now completed. She does believe that this helps some. She has had some significant dysgeusia, which makes drinking even plain water difficult for her. She has not had any significant dysphagia or odynophagia associated with her stomatitis. She does state that this tends to make her salivate a bit more. She has had a grade 1 Taxotere-induced rash, most noticeable in her forefinger and thumb bilaterally, which waxes and wanes throughout treatment. Initially, this was erythematous and itchy, resolved and then flared again. She did take a short course of prednisone for her rash a few weeks ago, which did help alleviate symptoms. She has completed this. She no longer has any burning sensations to the hands. She no longer has any peeling, excoriation or erythema. It is no longer pruritic. She has alopecia. She is using a wig. She has a history of dry eye syndrome and has had some increased lacrimation bilaterally recently. This was questionable for possible Taxotere- induced epiphora but she has now followed up with Dr. Oliver in [place]. She reports that prior to evaluation there was no blockage in her tear ducts. It was recommended to increase her [id number] lubricant eye drops. She has required IV fluid hydration on a couple of occasions secondary to volume contraction due to dehydration, grade 2 fatigue and some nausea. Those symptoms have improved. She is eating and drinking well. She continues to have some nasal dryness and uses a Neti Pot daily. She does still feel quite fatigued and she reports that this is becoming a bit more noticeable in between cycles. Currently, she tells me that she is eating and drinking well. Her stomatitis is stable. She has some dysgeusia. She recently lost her father but is grieving appropriately. She feels quite well today and has not had any recent infections. PAST MEDICAL HISTORY 1. Left breast cancer September 2018. 2. Psoriatic arthritis. 3. Scoliosis. 4. Hyperlipidemia. 5. Depression. 6. Dry eye syndrome, per patient. She is on Restasis and follows up with Dr. Oliver in [place], [place]. PAST SURGICAL HISTORY 1. Breast augmentation 1992. 2. Left kidney donation. 3. Left foot surgery times two. 4. Esophageal dilatation. 5. Total abdominal hysterectomy. 6. BSO. 7. Left knee replacement times four. 8. Left lumpectomy October 18, 2018. FAMILY HISTORY Mother had ovarian cancer at age 46. Maternal great aunt had breast cancer at unknown age. Maternal first cousin had breast cancer at 46. SOCIAL HISTORY Patient is . They have two grown sons. She is retired. She is a never smoker. She denies abuse of alcohol or illicit drugs. MEDICATIONS 1. Docusate sodium 100 mg b.i.d. 2. Wellbutrin SR 150 mg b.i.d. 3. Citalopram 40 mg daily. 4. Ranitidine 150 mg b.i.d. 5. Krill oil. 6. Vitamin B12. 7. Atorvastatin 40 mg daily. 8. Aspirin 81 mg daily. 9. Vitamin D3 5000 International Units daily. 10. Biotene. 11. Otezla 30 mg b.i.d. 12. MiraLAX powder one capful daily. ALLERGIES SULFA which causes rash and CODEINE which causes vomiting. REVIEW OF SYSTEMS CONSTITUTIONAL: Patient denies any recent fevers, chills or night sweats. Appetite is stable. EYES: She has a history of chronic dry eye syndrome. She is on Restasis drops. Bilateral lacrimation is stable but not worsened. She recently followed up with her scalp treatment specialist. HEENT: She has some generalized stomatitis, currently stable. She does use baking soda and warm water gargles and rinses as well as aloe vera rinses. She does have dysgeusia. She has dry mucous membranes in her nose. No epistaxis. GASTROINTESTINAL: No abdominal pain, nausea, vomiting or diarrhea. She has had some constipation, well managed with Colace b.i.d. and MiraLAX daily. NEUROLOGIC: No further headaches. She denies any numbness or tingling. No further burning sensation to her hands bilaterally at the rash site. No seizure like activity. PSYCHIATRIC: Patient recently lost her father. She tells me that she is coping well. She denies any severe depression, severe anxiety, suicidal or homicidal ideation. DERM: Patient has had a Taxotere rash at her hands bilaterally, which has waxed and waned throughout treatment. It has been as severe as grade 2. She did require a short course of oral steroids in the past. Currently, this has completely resolved. There is no further excoriation and no erythema and no burning pain. ENDOCRINE: Patient reports some generalized weakness. She has some fatigue, which is a bit more noticeable today and is becoming a bit more cumulative in nature in between cycles. She has alopecia. She is using a wig. She has lost eyebrows and eyelashes. EXTREMITIES: She denies any edema. MUSCULOSKELETAL: Arthralgias have improved. No focal areas of pain. The remainder of a 12-point review of systems was performed today and is otherwise negative. PHYSICAL EXAMINATION VITAL SIGNS: Temperature 99.4, P 99, R 16, BP 114/77. Oxygen saturation 94% room air. GENERAL: In general, this is a pleasant 68-year-old woman who appears well- hydrated, well-nourished, minimally fatigued and is in no acute distress. HEAD: Atraumatic. Normocephalic. EYES: Sclerae anicteric. Patient does have bilateral epiphora noted, at baseline compared to last week's exam. Sclerae anicteric. Patient does have bilateral lacrimation noted. This is stable. ENT/MOUTH: She has somewhat dry mucous membranes. She has some grade 1 stomatitis. No mucositis. No visible ulcerations. No plaque formation. Pharynx is nonerythematous. NECK: Supple. No lymphadenopathy. No JVD. LUNGS: Clear breath sounds to auscultation bilaterally. No wheezes, rales or rhonchi. HEART: Mildly tachycardic, regular rhythm. No gallops. NEUROLOGIC: Patient is awake, alert, and oriented times three. No focal motor or sensory deficits. PSYCHIATRIC: Mood and affect are appropriate today. DERM: Patient's Taxotere-induced rash is nearly resolved on exam today and quite stable. This has been as bad as grade 2 in the past but she has never had grade 3 or higher toxicity. She has some minimal dryness of her hands bilaterally. EXTREMITIES: No edema. No cyanosis or clubbing. MUSCULOSKELETAL: No pain to palpation of the bony spinous processes. Gait is stable. LABORATORY CBC today: WBC 11.4, ANC 5.9, hemoglobin 11.6, hematocrit 35.0%, platelets 210,000. CMP today: Largely normal with the exception of low protein at 6.0. This is only minimally low. Albumin is completely normal at 3.5. CA27-29 on December 27, 2018: 23.0 This was previously 17.5 on December 06, 2018. IMAGING Bone densitometry/DEXA scan at [facility] on 10/17/2017: 1. Lumbar spine: Osteopenia. There has been a 13.1% decrease in the bone mineral density since the previous exam. 2. Left total hip: Osteopenia. There has been a 25.6% decrease in the bone mineral density since the previous exam. 3. Femoral neck: Bone mineral density is 0.793 g/cm. The next DEXA scan of this patient should include the following sites: L1 to L4 and the left hip. IMPRESSION AND PLAN Patient is a 68-year old female who presented with a palpable mass in her left breast. Mammogram and ultrasound on October 14, 2018, showed a large, irregular, spiculated mass, 4.5 cm, at 11 o'clock to 12 o'clock position. She underwent left lumpectomy and sentinel lymph node biopsy on October 18, 2018. Pathology was positive for a 2.7 cm invasive, poorly differentiated ductal carcinoma with two of four sentinel lymph nodes positive, one with micrometastasis. The medial margin was positive initially but negative after re-excision. ER positive 92%, MS positive 74.9%, HER2/alfredo negative for FISH, Ki-67 of 10.8%. Oncotype DX testing showed a recurrent score of 17 with a risk of distant disease recurrence at 15% on Tamoxifen alone. She initiated Taxotere and Cytoxan, followed by Neulasta on November 15, 2018. She has now completed three cycles. She has one cycle left to go. She received Cycle #3 last week. She has had grade 1/2 stomatitis, grade 1/2 Taxotere-induced rash on her hands bilaterally, as well as grade 1 constipation. She has not had any grade 3 or higher toxicities. Currently, all of her symptoms are quite stable and even improved. Her rash has nearly completely resolved. She is having some fatigue, currently grade 2, likely related to cumulative effect from chemotherapy. 1. Breast cancer: Patient has now completed three of four cycles with TC. She will be due for Cycle #4 in two weeks. We will continue with this current plan. 2. Labs: CBC is in good range today. She does receive Neulasta with each cycle. Her CMP showed minimally low protein, although albumin was normal. We will continue to monitor. Most recent CA27-29 was within normal limits, although slightly increased compared to last. Again, we will continue to monitor. 3. Constipation: Currently manageable with current bowel regimen with Colace and MiraLAX daily. 3. Stomatitis: Improved. No longer has any signs of esophagitis. No oral michael. She will continue with her regimen with baking soda gargles and rinses as well as aloe vera rinses. 4. Epiphora: Stable bilaterally. History of dry eye syndrome. She follows up with Dr. Oliver in [place], [place], her scalp treatment specialist. 5. Rash: Now barely visible, less than grade 1. We will continue to monitor. She does have some mild dryness of her hands bilaterally and she is aware that her symptoms, including her rash, tend to wax and wane and are more prominent after receiving chemotherapy. She will continue with her hand lotion regimen. 6. Patient will continue with her [place] nasal saline gel for her dry mucous membranes as well as Neti Pot at home. 7. Patient is to notify us if any symptoms worsen in the interim. 8. She will return to clinic in two weeks for followup, repeat labs and Cycle #4 of 4 with TC followed by Amarjit. 9. She will need to be referred back to Radiation Oncology. She did meet with Dr. Ngo for consultation on November 20, 2018. Plan is for her to proceed with radiation therapy post completion of chemotherapy. I did discuss some of the generals with radiation therapy to include requiring ACT simulation scan prior to initiating treatment. Per last radiation note, she is agreeable to proceed with regional lenka radiation therapy with inclusion of chest wall and/or breast after completion of systemic chemotherapy. She was BRCA 1 and 2 negative. We will make sure that she is seen by Dr. Ngo post completion of radiotherapy. [facility]
[2019-01-10 13:05] VITALS: BP 120/71
[2019-01-10 13:30] LABS: PLATELET COUNT, AUTOMATED 166 K/uL (150-450)
--- NOTE | 2019-01-11 04:32 | ONCOLOGY FOLLOW UP NOTE ---
EVENT DATE: January 10, 2019 DIAGNOSIS Stage IIB (pT2 pN1a cM0) left breast invasive ductal carcinoma. CHIEF COMPLAINT Patient is here today for followup and ongoing care for her left breast cancer. She reports feeling well. She is on adjuvant chemotherapy with TC and Neulasta. ONCOLOGY HISTORY Patient is a 68-year old female who presented with palpable mass of her left breast. She had a screening mammogram on October 14, 2018, which showed large irregular spiculated mass, so the patient had ultrasound of the left breast the same day, which showed 4.5 cm large heterogenous solid mass at 11 to 12 o'clock position. Patient ended by having left breast lumpectomy and sentinel lymph node biopsy done on October 18, 2018, and the pathology came back positive for 2.7 cm invasive, poorly-differentiated ductal carcinoma, grade 3/3. Two out of four sentinel lymph nodes came back positive for metastasis, one with micrometastasis. The medial margin was positive initially and negative after re-excision. ER 92% positive, IL 74.9% positive, HER2/jair negative by FISH. Ki-67 was 10.8%. Oncotype DX testing showed recurrence score of 17 with distant recurrent risk at nine years 15% with no apparent benefit of chemotherapy. Patient started adjuvant chemotherapy with TC regimen with Taxotere and cyclophosphamide on the October. HISTORY OF PRESENT ILLNESS Pat is here today for followup labs and ongoing care for her breast cancer. She has completed three of four cycles with TC for adjuvant treatment for her left breast cancer. She receives Neulasta with each cycle. She has had some increased tearing and blurry vision, though this has been stable and has not worsened. She has already seen an security systems administrator and does have a history of dry eye. She has had some grade 1-2 fatigue throughout chemotherapy, as well as grade 1 nausea and grade 1-2 constipation. Currently, her energy level has improved. She does notice that the further out from treatment she gets, the better she feels. She is not having any nausea or vomiting. She has some mild tinnitus in her ears, which is unchanged. She occasionally has a productive cough with clear sputum, but is using Mucinex with good result. She has occasional dyspnea on exertion, but no shortness of breath. No vomiting. She is on a bowel regimen with Colace and MiraLAX, which is working quite well. She has not had any further headaches. She has some mild neuropathy intermittently in her fingers and toes bilaterally. She did have some arthralgias after Neulasta, though this corrected with Claritin. She has had some dry skin as well as a grade 1-2 Taxotere-induced rash to the hands bilaterally, which tends to wax and wane with treatment. This is currently stable. She has had some dysgeusia, also stable. She has had some general stomatitis, which is also under control at this time. She will be enjoying the upcoming with family at home. She becomes tearful at times, as her father did recently pass. She reports an excellent support system with her and friends in the community. Her is with her at the chairside. She has not had any fevers or recent infections. PAST MEDICAL HISTORY 1. Psoriatic arthritis. 2. Scoliosis. 3. Hypercholesterolemia. PAST SURGICAL HISTORY 1. Breast augmentation in 1992. 2. 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 3. She had two left foot surgeries. 4. She had esophageal dilatation. 5. Total abdominal hysterectomy. 6. Bilateral salpingo-oophorectomy done on separate occasions. FAMILY HISTORY Mother had ovarian cancer at age 47 years. Maternal aunts with breast cancer and maternal cousin with breast cancer in her 50s. SOCIAL HISTORY Patient is with two sons. 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 She is a never-smoker. Denies any abuse of alcohol or illicit drugs. CURRENT MEDICATIONS 1. Docusate sodium 100 mg capsule twice a day. 2. Wellbutrin SR 150 mg twice a day. 3, Citalopram 40 mg daily. 4. Ranitidine 150 mg twice daily. 5. Krill oil 500 mg daily. 6. Vitamin B12 1000 mcg tablet daily. 7. Atorvastatin 40 mg daily. 8. Aspirin 81 mg daily. 9. Magnesium oxide 250 mg daily. 10. Vitamin D3 5000 units daily. 11. Biotene 10,000 mcg tablet daily. 12. Otezla 30 mg tablet twice daily. ALLERGIES SULFA, which causes skin rash, and CODEINE, which causes vomiting. REVIEW OF SYSTEMS CONSTITUTIONAL: No recent fevers, chills, night sweats, or infections. HEENT: She has some mild tinnitus, which is unchanged. No hearing deficits. She has some tearing of the eyes bilaterally, which has been stable and evaluated by Ophthalmology. She has dry eye syndrome, which is stable. She is using eye drops. She has some mild nasal drainage, which improves with Mucinex. She has some dysgeusia, stable. She has some xerostomia, stable. She has some general stomatitis, but is using baking soda and warm water gargles and rinses four times a day, which does significantly help. No epistaxis. RESPIRATORY: She has an occasionally productive cough of clear sputum. This is stable. No pleuritic chest pain or hemoptysis. She has occasional dyspnea on exertion. No shortness of breath. CARDIOVASCULAR: No chest pain. No syncope or presyncope. GI: No abdominal pain. She has nausea for a few days following chemotherapy, but no vomiting. No diarrhea. She has had constipation, well managed with a bowel regimen. No heartburn. No bright red blood per rectum or melena. Appetite has been stable. : No dysuria, hematuria, or genitourinary discharge. MUSCULOSKELETAL: She has had some arthralgias in her hips and legs, but this was mostly related there is Neulasta. This has resolved. NEURO: She has had some intermittent mild tingling and numbness in her fingers and toes. This is only occasional and does not interfere with ADLs. Only occasional headache. No seizure-like activity. HEME/LYMPH: No free bleeding. No easy bruising. ENDOCRINE: No heat or cold intolerance. She does report some fatigue, though this is better this week. Appetite is stable. SKIN: She has had a Taxotere-induced rash noted to her hands bilaterally, which waxes and wanes. Currently this is grade 1 and improved overall. PSYCH: She does have a history of depression. She tells me that she is being diligent in taking her daily citalopram and Wellbutrin. She has seen a psychiatrist in the past. Her PCP is managing this. Currently, she denies any worsening depression, severe anxiety, suicidal or homicidal ideation. The remainder of a 12-point review of systems is performed today and is otherwise negative. PHYSICAL EXAMINATION VITAL SIGNS: T 98.0, P 106, R 18, BP 120/71, oxygen saturation 94% on room air. Currently rates pain level at "zero/10." Currently rates fatigue between 4-5. GENERAL: This is a pleasant 68-year-old woman who appears well hydrated, well nourished, and is in no acute distress. HEAD: Atraumatic. Normocephalic. EYES: Sclerae anicteric. ENT/MOUTH: Somewhat dry mucous membranes. No mucositis. Pharynx is nonerythematous. No thrush. NECK: Supple. No lymphadenopathy. LUNGS: Clear breath sounds to auscultation bilaterally. No focal findings. HEART: Mildly tachycardic. Regular rhythm. No ectopy. ABDOMEN: Soft, nontender, nondistended. No organomegaly. Bowel sounds positive x4. NEURO: Patient is awake, alert, oriented x3. No focal motor or sensory deficits. PSYCH: Mood and affect are appropriate today. She did become tearful today when discussing the upcoming holiday, , as her father recently passed. 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 DERM: Patient has a mild Taxotere-induced rash noted to her hands bilaterally. This waxes and wanes. In the past, it has been as high as grade 2 but never grade 3 or higher toxicity. Currently, there is only minimal dryness noted to the hands bilaterally, with no erythema or signs of infection. EXTREMITIES: No edema. No clubbing or cyanosis. MUSCULOSKELETAL: No pain to palpation of the bony spinous processes. Gait is stable. LABORATORY CBC today: WBC 13.4, ANC 10.8, hemoglobin 12.9, hematocrit 37.9%, platelets 166,000. Positive left shift, though this is likely attributable to recent Neulasta injection. She does have a macrocytic hyperchromia. This is stable. CMP today: Largely unremarkable. IMPRESSION AND PLAN Patient is a 68-year-old female with stage IIB (pT2, pN1a, cM0) left breast invasive ductal carcinoma, status post lumpectomy and sentinel lymph node biopsy done October 18, 2018, for 2.7 cm invasive, poorly-differentiated ductal carcinoma, grade 3/3. Two out of four sentinel lymph nodes were positive for metastasis, one of them with micrometastatic disease. Her medial margin was positive initially, but negative after re-excision. ER 92% positive, IL 74.9% positive, HER2/jair negative by FISH. Ki-67 was 10.8%. Oncotype DX testing came with a recurrence score of 17 with distant or systemic recurrent risk at nine years of 15% with no apparent benefit of chemotherapy. Her pathology was suggestive of aggressive tumor with grade 3/3, and she had also two positive lymph nodes, and for this reason, patient started adjuvant chemotherapy with TC regimen with Taxotere and cyclophosphamide on the October. She completed two courses so far, and I am planning to proceed with her third course today. I am planning to give her four cycles of chemotherapy, to be followed by adjuvant radiation therapy, to be followed by adjuvant hormonal therapy as her tumor was ER/IL positive. Most recent CA 27-29 on 12/27/18 was 23, up from 17. Still currently normal. We will continue to monitor. She has completed three cycles and will be due for her fourth and last cycle next week. She is aware that after her four cycles of chemotherapy, the plan is to follow this with adjuvant radiation therapy, which will then be followed by adjuvant hormonal therapy. 1. Stage IIB left breast invasive ductal carcinoma: Currently on adjuvant chemotherapy with TC with Neulasta. She will return to clinic next week for Cycle #4 with TC and Neulasta. That will be her last cycle. 2. Leukocytosis: Likely related to bone marrow effect after Neulasta. We will continue to monitor. She has no infection-type symptoms today. 3. Radiotherapy: Patient has already met with Dr. Ngo for consultation, seen before starting chemotherapy. She is scheduled to see him in the next couple of weeks so that planning process for radiation therapy can begin. 4. She does have a history of depression, and we discussed this at length today when she became tearful. She reports that she is compliant with her citalopram and Wellbutrin daily. She will continue with these. She denied any worsening depression and denies any suicidal or homicidal ideation. I will discuss with our in-house director social service. She has seen a psychiatrist in the past and is currently being managed by her PCP. She assures me that she will reach out to one of us if anything changes. 5. We will see her next week for Cycle #4. [facility]
[2019-01-17 09:32] VITALS: BP 142/77
[2019-01-17] MEDS: PALONOSETRON 0.25 MG/5 ML VIAL IVP PRN (10:15)
[2019-01-17] MEDS: NS(*) 0.9% 500 ML BAG 500 ML IV PRN (11:27)
--- NOTE | 2019-01-17 12:21 | ONCOLOGY FOLLOW UP NOTE ---
EVENT DATE: January 17, 2019 DIAGNOSIS Stage IIB (pT2 pN1a cM0) left breast invasive ductal carcinoma. CHIEF COMPLAINT Patient is here today for her fourth cycle of adjuvant chemotherapy with TC regimen with Taxotere and cyclophosphamide for her left breast cancer. ONCOLOGY HISTORY Patient is a 68-year old female who presented with palpable mass of her left breast. She had a screening mammogram on October 14, 2018, which showed large irregular spiculated mass, so the patient had ultrasound of the left breast the same day, which showed 4.5 cm large heterogenous solid mass at 11 to 12 o'clock position. Patient ended by having left breast lumpectomy and sentinel lymph node biopsy done on October 18, 2018, and the pathology came back positive for 2.7 cm invasive, poorly-differentiated ductal carcinoma, grade 3/3. Two out of four sentinel lymph nodes came back positive for metastasis, one with micrometastasis. The medial margin was positive initially and negative after re-excision. ER 92% positive, OR 74.9% positive, HER2/jair negative by FISH. Ki-67 was 10.8%. Oncotype DX testing showed recurrence score of 17 with distant recurrent risk at nine years 15% with no apparent benefit of chemotherapy. Patient started adjuvant chemotherapy with TC regimen with Taxotere and cyclophosphamide on November 16, 2018. Patient completed four cycles of TC regimen on January 17, 2019. HISTORY OF PRESENT ILLNESS Patient is here today for her fourth and last cycle of adjuvant chemotherapy with TC regimen for her left breast cancer. She is doing fine currently. She has some cough with phlegm. She has generalized joint pain. She is complaining of some tingling and numbness of her hands and feet and patient attributed that to her psoriatic arthropathy. She has also headache. She is weak, tired and fatigued. PAST MEDICAL HISTORY 1. Psoriatic arthritis. 2. Scoliosis. 3. Hypercholesterolemia. PAST SURGICAL HISTORY 1. Breast augmentation in 1992. 2. 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 3. She had two left foot surgeries. 4. She had esophageal dilatation. 5. Total abdominal hysterectomy. 6. Bilateral salpingo-oophorectomy done on separate occasions. FAMILY HISTORY Mother had ovarian cancer at age 47 years. Maternal aunts with breast cancer and maternal cousin with breast cancer in her 50s. SOCIAL HISTORY Patient is with two sons. 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 She is a never smoker. Denies any abuse of alcohol or illicit drugs. CURRENT MEDICATIONS 1. Docusate sodium 100 mg capsule twice a day. 2. Wellbutrin SR 150 mg twice a day. 3, Citalopram 40 mg daily. 4. Ranitidine 150 mg twice daily. 5. Krill Oil 500 mg daily. 6. Vitamin B12 1000 mcg tablet daily. 7. Atorvastatin 40 mg daily. 8. Aspirin 81 mg daily. 9. Magnesium Oxide 250 mg daily. 10. Vitamin D3 5000 units daily. 11. Biotene 10,000 mcg tablet daily. 12. Otezla 30 mg tablet twice daily. ALLERGIES SULFA which causes skin rash and CODEINE which causes vomiting. REVIEW OF SYSTEMS CONSTITUTIONAL: No appetite or weight change. No fever, chills, or sweating. No recent infection. HEENT: Ears: She has tinnitus. No hearing problem. Nose: No nasal discharge. She has occasional nasal bleeds. Throat: No sore throat or mouth ulcers. Eyes: She has increased tearing and blurry vision. RESPIRATORY: She has cough with expectoration. CARDIOVASCULAR: No chest pain, orthopnea, or paroxysmal nocturnal dyspnea (PND). No edema. No palpitations. GASTROINTESTINAL: She has nausea for a few days after her chemotherapy. No vomiting. No diarrhea or constipation. No change in bowel movements. No heartburn or swallowing difficulties. No abdominal pain. No jaundice. No hematemesis, melena, or rectal bleeding. GENITOURINARY: No hematuria or dysuria. MUSCULOSKELETAL: She has generalized joint pain. NEUROLOGICAL: She has tingling and numbness in the hands and feet due to her psoriatic arthropathy. She has also headache. HEMATOLOGIC/LYMPHATIC: She is weak, tired, and fatigued. SKIN: No skin rash or lumps. She has dry skin. PSYCHIATRIC: No anxiety or depression. PHYSICAL EXAMINATION GENERAL: Looks stable. Well developed, well nourished, and in no acute distress. VITAL SIGNS: Blood pressure 142/77, pulse 97 per minute, respirations 18 per minute, temperature 98, pulse ox 95% on room air. HEENT: Head: Atraumatic. No sinus tenderness to palpation. Eyes: No icterus or conjunctivitis. Mouth and Throat: No oral thrush or mucositis. NECK: Supple. No cervical or supraclavicular lymphadenopathy. LUNGS: Clear to auscultation and percussion bilaterally. HEART: Regular rate and rhythm. No gallops, murmurs, clicks, or rubs. ABDOMEN: Soft and lax. No tenderness. No hepatosplenomegaly. No masses. EXTREMITIES: No cyanosis, clubbing, or edema. LYMPHATICS: No peripheral lymphadenopathy. NEUROLOGICAL: Conscious, alert, and oriented times three. No focal motor or sensory deficits. PSYCHIATRIC: Mood and affect appear normal. SKIN: No skin rash, bruise, or purpuric eruption. DIAGNOSTIC DATA CBC showed white count 9,000, hemoglobin 12.7, hematocrit 37.6, platelets 274,000. Chem panel totally normal except carbon dioxide 21, blood sugar 157. CA27.29 is normal at 23. ASSESSMENT 1. Stage IIB (pT2, pN1a, cM0) left breast invasive ductal carcinoma, status post lumpectomy and sentinel lymph node biopsy done October 18, 2018, for 2.7 cm invasive, poorly-differentiated ductal carcinoma, grade 3/3. Two out of four sentinel lymph nodes were positive for metastasis, one with micrometastasis. Medial margin was positive initially but negative after re-excision. ER 92% positive, OR 74.9% positive, HER2/jair negative by FISH. Ki-67 was 10.8%. Oncotype DX testing showed a recurrence score of 17 with distant systemic recurrent risk at nine years of 15% with no apparent benefit of chemotherapy. Her pathology was aggressive with grade 3/3 and she had also two positive lymph nodes and for this reason patient started adjuvant chemotherapy with TC regimen with Taxotere and cyclophosphamide on November 16, 2018. She received three cycles so far today, January 17, 2019, patient will receive her last cycle and fourth cycle of TC regimen. I am planning to refer the patient after this cycle to have adjuvant radiation therapy and I will see her in two months from now with CBC, chem panel and CA27.29, vitamin D level and DEXA scan to start her adjuvant treatment after she would finish her adjuvant radiation therapy. Patient is agreeable with the plan of management. She is happy that we will take her PICC line off after this treatment today. PLAN 1. Chemotherapy with TC regimen. This will be cycle #4. 2. CBC, chem panel to be checked weekly. 3. Patient to return in two months with CBC, chem panel, CA27.29, vitamin D level and DEXA scan. 4. Referral to Radiation Oncology for adjuvant radiation therapy. 5. Patient to contact us for any new concerns or complaints. URIAHD
[2019-01-17 13:27] VITALS: BP 143/71
[2019-01-24 13:10] LABS: PLATELET COUNT, AUTOMATED 210 K/uL (150-450)
[2019-01-24 13:19] VITALS: BP 128/69
--- NOTE | 2019-01-24 15:27 | ONCOLOGY FOLLOW UP NOTE ---
EVENT DATE: January 24, 2019 DIAGNOSIS Stage IIB (pT2 pN1a cM0) left breast invasive ductal carcinoma. CHIEF COMPLAINT Patient is here today for followup and ongoing labs for her left breast cancer. She has completed all four cycles of adjuvant chemotherapy with TC. ONCOLOGY HISTORY Patient is a 69-year old female who presented with palpable mass of her left breast. She had a screening mammogram on October 14, 2018, which showed a large, irregular, spiculated mass, so the patient had ultrasound of the left breast the same day, which showed 4.5 cm large heterogenous solid mass at 11 to 12 o'clock position. Patient ended by having left breast lumpectomy and sentinel lymph node biopsy done on October 18, 2018, and the pathology came back positive for 2.7 cm invasive, poorly-differentiated ductal carcinoma, grade 3/3. Two out of four sentinel lymph nodes came back positive for metastasis, one with micrometastasis. The medial margin was positive initially and negative after re-excision. ER 92% positive, IL 74.9% positive, HER2/jair negative by FISH. Ki-67 was 10.8%. Oncotype DX testing showed recurrence score of 17 with distant recurrent risk at nine years 15% with no apparent benefit of chemotherapy. Patient started adjuvant chemotherapy with TC regimen with Taxotere and cyclophosphamide on November 16, 2018. Patient completed four cycles of TC regimen on January 17, 2019. HISTORY OF PRESENT ILLNESS Pat is here today for ongoing followup for her left breast cancer. She completed her fourth and last cycle of adjuvant chemotherapy with TC last week on 01/17/19. She received Neulasta while on treatment. Overall, she is doing well, but has had some generalized weakness and fatigue. She reports that this seemed worse and increased in intensity compared to her previous cycles. She denies any fevers. She had some generalized joint pain. She does still have some numbness and tingling in her hands and feet, which is attributed to her psoriatic arthropathy. She has had some occasional sputum production with an occasionally productive cough, but has been using Mucinex p.r.n. Mucinex is making her somewhat dry. She continues to have some xerostomia. She still has some dysgeusia, and food and water no longer taste normal to her. She will be seeing Dr. Ngo with Radiation Oncology tomorrow for evaluation for adjuvant radiotherapy. PAST MEDICAL HISTORY 1. Psoriatic arthritis. 2. Scoliosis. 3. Hypercholesterolemia. PAST SURGICAL HISTORY 1. Breast augmentation in 1992. 2. 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 3. She had two left foot surgeries. 4. She had esophageal dilatation. 5. Total abdominal hysterectomy. 6. Bilateral salpingo-oophorectomy done on separate occasions. FAMILY HISTORY Mother had ovarian cancer at age 47 years. Maternal aunts with breast cancer and maternal cousin with breast cancer in her 50s. SOCIAL HISTORY Patient is with two sons. 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 She is a never smoker. Denies any abuse of alcohol or illicit drugs. CURRENT MEDICATIONS 1. Docusate sodium 100 mg capsule twice a day. 2. Wellbutrin SR 150 mg twice a day. 3, Citalopram 40 mg daily. 4. Ranitidine 150 mg twice daily. 5. Krill Oil 500 mg daily. 6. Vitamin B12 1000 mcg tablet daily. 7. Atorvastatin 40 mg daily. 8. Aspirin 81 mg daily. 9. Magnesium Oxide 250 mg daily. 10. Vitamin D3 5000 units daily. 11. Biotene 10,000 mcg tablet daily. 12. Otezla 30 mg tablet twice daily. ALLERGIES SULFA which causes skin rash and CODEINE which causes vomiting. REVIEW OF SYSTEMS CONSTITUTIONAL: Patient denies any recent fevers, chills, or night sweats. No recent infections. HEENT: She has occasional nasal drainage. No vision changes. No tinnitus. No mouth sores. RESPIRATORY: She has an occasional cough with sputum production. She is using Mucinex. She denies any shortness of breath, pleuritic chest pain, or hemoptysis. CARDIOVASCULAR: No chest pain, syncope, or presyncope. GASTROINTESTINAL: No abdominal pain, nausea, or vomiting. She did have nausea a few days after chemotherapy, but this resolved. No vomiting. She has had some constipation, which is controlled with [id number] stool softeners and laxatives. No bright red blood per rectum or melena. GENITOURINARY: No dysuria, hematuria, or genitourinary discharge. MUSCULOSKELETAL: She has some generalized arthralgias. NEUROLOGIC: She has some numbness and tingling in her hands and feet, likely attributable to her psoriatic arthropathy. No current headache. No seizure- like activity. ENDOCRINE: No heat or cold intolerance. She has some generalized weakness and fatigue, slightly worse after her last cycle. SKIN: No rash or suspicious lumps or bumps. PSYCHIATRIC: She has a history of depression, but denies any severe anxiety, severe depression, suicidal or homicidal ideation. Remainder of her 12-point review of systems is performed today and is otherwise negative. PHYSICAL EXAMINATION VITAL SIGNS: Most recent weight 68.7 kg. T 99.0, P 106, R 16, BP 128/69, oxygen saturation 93% room air. HEAD: Atraumatic, normocephalic. EYES: Sclerae anicteric. ENT, MOUTH: Slightly dry mucous membranes related to xerostomia. No mucositis. NECK: Supple. No lymphadenopathy. No JVD. LUNGS: Clear breath sounds to auscultation bilaterally. HEART: Mildly tachycardic, regular rhythm. No ectopy. ABDOMEN: Soft, nontender, nondistended. Bowel sounds positive x4. EXTREMITIES: No clubbing, cyanosis, or edema. NEUROLOGIC: Patient is awake, alert, oriented x3. PSYCHIATRIC: Mood and affect are appropriate. DERM: No rash, petechiae, or purpura. LABORATORY CBC today: WBC 11.5, ANC 8.8, hemoglobin 11.7, hematocrit 35.0, platelets 210,000. CMP today: Unremarkable with the exception of mildly elevated glucose at 136 and mildly low protein at 6.2 with normal albumin of 3.7. Tumor markers on 01/17/2019: CA27.29 of 28.8, up from 23.0 on 12/27/18. IMPRESSION AND PLAN This is a pleasant 69-year-old woman with stage IIB (pT2, pN1a, cM0) left breast invasive ductal carcinoma, status post lumpectomy and sentinel lymph node biopsy done October 18, 2018, for 2.7 cm invasive, poorly-differentiated ductal carcinoma, grade 3/3. Two out of four sentinel lymph nodes were positive for metastasis, one with micrometastasis. Medial margin was positive initially, but negative after re-excision. ER 92% positive, IL 74.9% positive, HER2/jair negative by FISH. Ki-67 was 10.8%. Oncotype DX testing showed a recurrence score of 17 with distant systemic recurrent risk at nine years of 15% with no apparent benefit of chemotherapy. Her pathology was aggressive with grade 3/3, and she had also two positive lymph nodes, and for this reason, patient started adjuvant chemotherapy with TC regimen with Taxotere and cyclophosphamide on 11/16/18. She has now completed all four cycles of adjuvant TC with her fourth and last cycle given on 01/17/19. She has been referred to Dr. Ngo for adjuvant radiation therapy, whom she will see tomorrow for followup. Plan is for her to proceed with radiotherapy, followed by adjuvant endocrine therapy. At last visit, DEXA scan was ordered to be done in a couple of months post completion of radiotherapy. 1. Routine labs today. 2. Patient will return to clinic tomorrow for her visit with Dr. Ngo with Radiation Oncology. 3. We discussed the normal cumulative effect with chemotherapy. She had more fatigue and generalized malaise after her last cycle last week, but this is slowly improving. Overall, she is doing well. Her appetite is good, though her intake is altered by her dysgeusia. She will inform us if anything changes or worsens. She should continue to improve the further out from her last cycle of chemotherapy. 4. We will follow up with her again in two months or post completion of radiotherapy. MTDD
[~2019-02-07] VITALS: Ht 164.5 cm; Wt 68.7 kg
[~2019-02-07] MED LIST changes: +ALTEPLASE RECOMB 2 MG VIAL IVP PRN; +CYCLOPHOSPHAMIDE IVPB ONE; +DEXAMETHASONE SOD 4 MG/ML VIAL IVP ONE; +DEXAMETHASONE SOD PHOS 10MG/ML IVP PRN; +DEXTROSE 5%(*) 100 ML BAG 100 ML IVPB PRN; +DOCETAXEL IVPB ONE; +NS 0.9% IVPB ONE; +NS(*) 0.9% 100 ML BAG 100 ML IVPB PRN; +NS(*) 0.9% 1000 ML BAG 1,000 ML IV PRN; +PEGFILGRASTIM 6 MG/0.6 ML KIT SUBQ ONE; +WATER FOR INJ,STERILE 20 ML IVP PRN; +[UNRECOGNIZED DRUG - OTHER] IVPB ONE
[2019-02-07 13:22] VITALS: BP 131/80
[2019-02-07 13:22] LABS: PLATELET COUNT, AUTOMATED 280 K/uL (150-450)
--- NOTE | 2019-02-07 14:59 | NUR ---
SW assisted pt with selection from the breast boutique. Placed order today.
--- NOTE | 2019-02-07 15:00 | NUR ---
ELIOT offered options for counseling. Pt stated she has had some sadness with going through this journey and dealing with her dad's . She is tearful most days for one reason or another, happy or sad. She said it might benefit her to be able to speak with someone. ELIOT offered [facility] breast cancer counseling. Pt was agreeable. SW faxed referral.
--- NOTE | 2019-02-08 02:26 | ONCOLOGY FOLLOW UP NOTE ---
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 CHIEF COMPLAINT Patient is here today for ongoing followup and labs for her left breast cancer. She is status post completion of adjuvant chemotherapy with TC. ONCOLOGY HISTORY Patient is a 69-year old female who presented with palpable mass of her left breast. She had a screening mammogram on October 14, 2018, which showed a large, irregular, spiculated mass, so the patient had ultrasound of the left breast the same day, which showed 4.5 cm large heterogenous solid mass at 11 to 12 o'clock position. Patient ended by having left breast lumpectomy and sentinel lymph node biopsy done on October 18, 2018, and the pathology came back positive for 2.7 cm invasive, poorly-differentiated ductal carcinoma, grade 3/3. Two out of four sentinel lymph nodes came back positive for metastasis, one with micrometastasis. The medial margin was positive initially and negative after re-excision. ER 92% positive, MO 74.9% positive, HER2/jair negative by FISH. Ki-67 was 10.8%. Oncotype DX testing showed recurrence score of 17 with distant recurrent risk at nine years 15% with no apparent benefit of chemotherapy. Patient started adjuvant chemotherapy with TC regimen with Taxotere and cyclophosphamide on November 16, 2018. Patient completed four cycles of TC regimen on January 17, 2019. HISTORY OF PRESENT ILLNESS Pat is here today for ongoing followup for her left breast cancer. She completed her fourth and last cycle of adjuvant chemotherapy with TC last week on 01/17/19. She received Neulasta while on treatment. Overall, she is doing well and is recovering from chemotherapy. She is approximately three weeks out. She continues to have some generalized fatigue and weakness, though this is slowly improving every day. This did seem to intensify in severity after her last cycle. She denies any recent fevers or infections. She has some generalized joint aches. She does still have some numbness and tingling in her hands and feet. She has a history of psoriatic arthropathy. She has had occasional sputum production, but uses Mucinex p.r.n. She continues to note some xerostomia, though this is slowly improving. Her dysgeusia is also improving. She saw Dr. Ngo with Radiation Oncology earlier this week. She believes plan is for her to initiate radiotherapy early next week. She tells me that she is trying to walk at least 1 1/2 to two miles five days per week. She does not feel as strong as she used to be prior to chemotherapy. Otherwise, she is doing well. PAST MEDICAL HISTORY 1. Psoriatic arthritis. 2. Scoliosis. 3. Hypercholesterolemia. PAST SURGICAL HISTORY 1. Breast augmentation in 1992. 2. 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 3. She had two left foot surgeries. 4. She had esophageal dilatation. 5. Total abdominal hysterectomy. 6. Bilateral salpingo-oophorectomy done on separate occasions. FAMILY HISTORY Mother had ovarian cancer at age 47 years. Maternal aunts with breast cancer and maternal cousin with breast cancer in her 50s. SOCIAL HISTORY Patient is with two sons. 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 She is a never smoker. Denies any abuse of alcohol or illicit drugs. CURRENT MEDICATIONS 1. Docusate sodium 100 mg capsule twice a day. 2. Wellbutrin SR 150 mg twice a day. 3, Citalopram 40 mg daily. 4. Ranitidine 150 mg twice daily. 5. Krill oil 500 mg daily. 6. Vitamin B12 1000 mcg tablet daily. 7. Atorvastatin 40 mg daily. 8. Aspirin 81 mg daily. 9. Magnesium oxide 250 mg daily. 10. Vitamin D3 5000 units daily. 11. Biotene 10,000 mcg tablet daily. 12. Otezla 30 mg tablet twice daily. ALLERGIES SULFA, which causes skin rash, and CODEINE, which causes vomiting. REVIEW OF SYSTEMS CONSTITUTIONAL: Patient denies any recent fevers, chills, or night sweats. No recent infections. HEENT: She has occasional nasal drainage. No vision changes. No tinnitus. No mouth sores. Her xerostomia is improving. Her taste buds are improving. RESPIRATORY: No cough. She has occasional sputum production, clear white to clear yellow. She uses Mucinex p.r.n. No shortness of breath, pleuritic chest pain, or hemoptysis. CARDIOVASCULAR: No chest pain, syncope, or presyncope. GASTROINTESTINAL: No abdominal pain, nausea, or vomiting. She did have nausea a few days after chemotherapy, but this resolved. No vomiting. She has had some constipation, which is controlled with [id number] stool softeners and laxatives. No bright red blood per rectum or melena. GENITOURINARY: No dysuria, hematuria, or genitourinary discharge. MUSCULOSKELETAL: She has some generalized arthralgias. NEUROLOGIC: She has some numbness and tingling in her hands and feet, likely attributable to her psoriatic arthropathy. No current headache. No seizure- like activity. ENDOCRINE: No heat or cold intolerance. She has some generalized weakness and fatigue, slightly worse after her last cycle. SKIN: No rash or suspicious lumps or bumps. PSYCHIATRIC: She has a history of depression, but denies any severe anxiety, severe depression, suicidal or homicidal ideation. Remainder of her 12-point review of systems is performed today and is otherwise negative. PHYSICAL EXAMINATION VITAL SIGNS: T 98.8, P 96, R 16, BP 131/80, oxygen saturation 98% room air. HEAD: Atraumatic, normocephalic. EYES: Sclerae anicteric. ENT, MOUTH: Slightly dry mucous membranes related to xerostomia. No mucositis. NECK: Supple. No lymphadenopathy. No JVD. LUNGS: Clear breath sounds to auscultation bilaterally. HEART: Mildly tachycardic, regular rhythm. No ectopy. ABDOMEN: Soft, nontender, nondistended. Bowel sounds positive x4. EXTREMITIES: No clubbing, cyanosis, or edema. NEUROLOGIC: Patient is awake, alert, oriented x3. PSYCHIATRIC: Mood and affect are appropriate. DERM: No rash, petechiae, or purpura. LABORATORY CBC today: WBC 8.9, ANC 6.6, hemoglobin 11.7, hematocrit 34.5%, platelets 280,000. CMP today: Completely normal. [id number] on 01/17/19: Normal at 28.8. IMPRESSION AND PLAN This is a pleasant 69-year-old woman with stage IIB (pT2 pN1a cM0) left breast invasive ductal carcinoma, status post lumpectomy and sentinel lymph node biopsy done October 18, 2018, for 2.7 cm invasive, poorly-differentiated ductal carcinoma, grade 3/3. Two out of four sentinel lymph nodes were positive for metastasis, one with micrometastasis. Medial margin was positive initially, but negative after re-excision. ER 92% positive, MO 74.9% positive, HER2/jair negative by FISH. Ki-67 was 10.8%. Oncotype DX testing showed a recurrence score of 17 with distant systemic recurrent risk at nine years of 15% with no apparent benefit of chemotherapy. Her pathology was aggressive with grade 3/3, and she had also two positive lymph nodes, and for this reason, patient started adjuvant chemotherapy with TC regimen with Taxotere and cyclophosphamide on 11/16/18. She has now completed all four cycles of adjuvant TC with her fourth and last cycle given on 01/17/19. She has now seen Dr. Ngo for consideration of adjuvant radiation therapy. Plan is for her likely to initiate this early next week. She is aware that following radiotherapy, she will require adjuvant endocrine therapy. DEXA scan was ordered to be done in a couple of months post completion of radiotherapy. She is doing well overall, though does still have some grade 1-2 fatigue. This is slowly improving daily the further out she gets from chemotherapy. 1. Reviewed labs with patient today. 2. She will continue with Radiation Oncology per their instructions. 3. Discussed the normal cumulative effect with chemotherapy and the fact that this should improve. Her appetite has improved, and her taste buds are slowly improving as well. She is to continue exercising and watching her nutrition to help with energy. 4. Patient will return to clinic in one to two months, post completion of radiotherapy. 5. We may certainly see her sooner in the interim if needed. MTDD
== END ==
LOC: ONC 11-09 07:07 → SPU 11-22 12:57 → ONC 12-06 10:55 → SPU 12-13 12:26 → ONC 12-27 10:52 → SPU 01-03 13:00 → ONC 01-17 10:03 → SPU 01-24 12:52
PROVIDERS: ATTEND Internal Medicine Hematology
DX: Z51.11 Encounter for antineoplastic chemotherapy (principal); C50.912 Malignant neoplasm of unspecified site of left female breast; Z17.0 Estrogen receptor positive status [ER+]; C77.9 Secondary and unspecified malignant neoplasm of lymph node, unspecified; Z79.899 Other long term (current) drug therapy; Z79.82 Long term (current) use of aspirin; R53.83 Other fatigue; R53.1 Weakness; R05 Cough; D72.829 Elevated white blood cell count, unspecified
CPT/HCPCS: 36415; 36592; 85025; 85027; 86300; 96361; 96372; 96374; 96375; 96413; 96417; G0463; J1100; J2469; J2505; J7030; J7040; J7050; J9070; J9171; 82040; 82247; 82310; 82374; 82435; 82565; 82947; 84075; 84132; 84155; 84295; 84450; 84460; 84520; 99202; 99212

== ENCOUNTER 2019-04-08 08:00 | Outpatient (RCR) | payer MEDICARE ==
[2017-03-07 12:36] VITALS: BMI 29.6
[2018-11-20 14:13] VITALS: BP 122/72
[2019-02-26 09:51] LABS: PLATELET COUNT, AUTOMATED 185 K/uL (150-450)
[~2019-04-08 08:00] MED LIST changes: -ALTEPLASE RECOMB 2 MG VIAL IVP PRN; +ANAS1TAB12 PO; -CYCLOPHOSPHAMIDE IVPB ONE; -DEXAMETHASONE SOD 4 MG/ML VIAL IVP ONE; -DEXAMETHASONE SOD PHOS 10MG/ML IVP PRN; -DEXTROSE 5%(*) 100 ML BAG 100 ML IVPB PRN; -DOCETAXEL IVPB ONE; -NS 0.9% IVPB ONE; -NS(*) 0.9% 100 ML BAG 100 ML IVPB PRN; -NS(*) 0.9% 1000 ML BAG 1,000 ML IV PRN; -OMEP-125 PO; +OMEP-126 PO; -PEGFILGRASTIM 6 MG/0.6 ML KIT SUBQ ONE; -WATER FOR INJ,STERILE 20 ML IVP PRN; -[UNRECOGNIZED DRUG - OTHER] IVPB ONE
== END 2019-05-05 ==
LOC: RAON 08:00
PROVIDERS: ATTEND Radiology Radiation Oncology
DX: Z51.0 Encounter for antineoplastic radiation therapy (principal); C50.912 Malignant neoplasm of unspecified site of left female breast; C77.3 Secondary and unspecified malignant neoplasm of axilla and upper limb lymph nodes; Z17.0 Estrogen receptor positive status [ER+]; Z79.899 Other long term (current) drug therapy; Z79.82 Long term (current) use of aspirin; Z92.21 Personal history of antineoplastic chemotherapy
CPT/HCPCS: 36415; 77295; 77300; 77334; 77336; 77412; 82040; 82247; 82306; 82310; 82374; 82435; 82565; 82947; 84075; 84132; 84155; 84295; 84443; 84450; 84460; 84520; 85025; 86300; 99212